=== PATIENT | male | born 1995 | race Caucasian/White ===

== ENCOUNTER → 2023-08-11 13:35 | Outpatient (CLI) | payer OTHER, SELFPAY ==
--- NOTE | ~2023-08-11 | XR_ITS ---
XR knee RT 3V 08/11/2023 13:54 INDICATION: Right knee pain PROCEDURE: 3 views right knee COMPARISON: No prior studies for comparison. FINDINGS: Fracture, dislocation or subluxation is not identified. No significant joint effusion. The soft tissues appear within normal limits. No foreign bodies are identified. IMPRESSION: 1: NO ACUTE BONE OR JOINT ABNORMALITY IDENTIFIED. Reviewed, dictated and finalized at location L. [employer] T[employer] CLEANING
== END ==
PROVIDERS: PCP Family Medicine Adolescent Medicine; Visit Provider Family Medicine Adolescent Medicine
DX: M25.561 Pain in right knee (principal)
CPT/HCPCS: 73562

== ENCOUNTER → 2023-09-03 08:51 | Outpatient (CLI) | payer OTHER, SELFPAY ==
--- NOTE | ~2023-09-03 | MR_ITS ---
MRI of the right knee Clinical history: Pain Technique: Coronal proton density and proton density-weighted images, sagittal proton-density and T2 fat-sat images, and axial proton-density fat-saturated images were acquired. Findings: Anterior and posterior cruciate ligaments are intact. Medial collateral ligament and the la teral collateral ligament complex are intact. Popliteus tendon is intact. Probable subtle oblique undersurface tear of the posterior horn of the medial meniscus. No lateral me niscal tear seen. Articular cartilage is well preserved in all 3 joint compartment. Bone marrow signals are unremarkabl e. Extensor mechanism is intact. No significant joint effusion or Duran's cyst. Impression: Probable subtle oblique undersurface tear of the posterior horn of the medial meniscus. Reviewed, dictated and finalized at location . GRATION SOFTWARE ENGINEER Impression: Probable subtle oblique undersurface tear of the posterior horn of the medial m eniscus.
== END ==
PROVIDERS: PCP Family Medicine Adolescent Medicine; Visit Provider Family Medicine Adolescent Medicine
DX: M25.561 Pain in right knee (principal)
CPT/HCPCS: 73721

== ENCOUNTER 2024-05-04 08:37 | Outpatient (CLI) | payer OTHER, SELFPAY ==
--- NOTE | ~2024-05-04 | MR_ITS ---
EXAMINATION: MR knee RT wo con DATE: 05/04/2024 09:13 INDICATION: Right patellar tendinitis. Right anterior knee pain. TECHNIQUE: Magnetic resonance imaging (MRI) of the right knee was performed without intravenous contr ast. Sequences included axial PD-weighted FS FSE, coronal PD-weighted FSE and PD-weighted FS FSE, sag ittal PD-weighted FSE, and sagittal T2-weighted FS FSE. COMPARISON: Right knee radiographs 03/14/24, MRI 09/03/2023. FINDINGS: Medial compartment: There is an undersurface horizontal tear of posterior horn of medial meniscus. Medial compartment car tilage is normal. Lateral compartment: Lateral meniscus is normal. Lateral compartment cartilage is normal. Patellofemoral compartment: Patellar cartilage is normal. Trochlear cartilage is normal. Ligaments and tendons: The anterior and posterior cruciate ligaments are normal. There are collateral ligament and lateral c ollateral ligament complex are normal. There is mild patellar tendinopathy. Fluid: There is a small knee joint effusion. There is mild superficial infrapatellar bursitis. IMPRESSION: 1. Mild patellar tendinopathy. 2. Mild superficial infrapatellar bursitis. 3. Tear of medial meniscus. 4. Small knee joint effusion. Reviewed, dictated and finalized at location A.
== END 2024-05-04 08:38 ==
LOC: MICIMG 08:38
PROVIDERS: PCP Family Medicine Adolescent Medicine; Visit Provider Orthopaedic Surgery Sports Medicine
DX: M76.51 Patellar tendinitis, right knee (principal); M70.51 Other bursitis of knee, right knee; M25.461 Effusion, right knee; S83.241A Other tear of medial meniscus, current injury, right knee, initial encounter; X58.XXXA Exposure to other specified factors, initial encounter
CPT/HCPCS: 73721

== ENCOUNTER 2025-03-25 19:48 | Emergency (ER) | payer OTHER, SELFPAY ==
[2025-03-25] VITALS (7 sets, daily range): BP systolic 108–124; BP diastolic 62–74; PULSE 56–84; RESP 14–20; TEMP 36.7; O2SAT 97–100
--- NOTE | ~2025-03-25 | XR_ITS ---
CHEST RADIOGRAPH CLINICAL HISTORY: lightheaded . COMPARISON: 12/07/2017 TECHNIQUE: Single portable view of the chest. FINDINGS The cardiomediastinal silhouette is unremarkable. Trace interstitial thickening is identified in comparison to prior examination. The lungs are primarily clear. IMPRESSION: Trace interstitial thickening, without focal infiltrate or effusion. Reviewed, dictated and finalized at location A.
--- OUTSIDE RECORDS SUMMARY | 2025-03-25 19:50 | XMS_ITS | Clinical Summary ---
Author Organization [facility] Address [address] [place] [address] Care Team Providers Care Concrete Stone Fabricating Supervisor Name Role Phone Rogelio Yoo MD Primary Care Provider + Source Comments [facility],non-owned Affiliates and Associated Physician Practices is amultiple site organization consisting of ambulatory clinics and hospital sitesin [place], [place], [place] and [place]. This disclosure is being madepursuant to the Care Everywhere program and may not contain all information available regarding this patient. Last updated 18.[facility] Allergies No known active allergies Medications * Be aware that medications may not be up to date on this document. Alwaysverify current medications with the patient. ALPRAZolam (XANAX) 0.25 MG tablet Take 0.25 mg by mouth 3 times daily as needed for Anxiety Active fluticasone propionate (FLONASE) 50 MCG/ACT nasal spray [place] 2 sprays into each nostril once daily Active ibuprofen (MOTRIN) 600 MG tablet Take 600 mg by mouth every 6 hours as needed for Pain Active aluminum-magnesi um-simethicone (MAALOX;MYLANTA) 200-200-20 MG/5ML suspension Take 15 mL by mouth every 6 hours as needed for Heartburn Active loratadine (CLARITIN) 10 MG tablet Take 10 mg by mouth once daily 1 Active pantoprazole EC (PROTONIX) 40 MG tabletIndication s:Esophageal dysmotility,Nasreen roesophageal reflux disease without esophagitis Take 1 (one) tablet by mouth once daily 90 tablet 3 2 Active Active Problems Problem Noted Date Diagnosed Date Anxiety 06/13/2019 Esophageal dysmotility 06/13/2019 Overview (08/15/2019): - Symptoms started ~2017. EGD normal. CT Chest and MRI chest normal - Esophageal manotomy December, Ineffective esophageal motility - Failed Has failed prior treatments with erythromycin, clarithromycin, PPI, and Reglan - May 2019 first office visit at [facility]. Significant regurgitation after meals and belching. Given bethanecol and simethicone. No improvement - 2018 24hr pH impedence Migraines 06/13/2019 Immunizations Immunization Administration Dates Next Due INFLUENZA VACCINE 07/29/2019 Family History Medical History Relation Name Comments Asthma Maternal Grandmother Relation Name Status Comments Maternal Grandmother Social History Tobacco Use Types Packs/Day Years Used Date Smoking Tobacco: Never Smokeless Tobacco: Never Alcohol Use Standard Drinks/Week Comments No 0 (1 standard drink = 0.6 oz pur e alcohol) Sex and Gender Information Value Date Recorded Sex Assigned at Male 06/04/2021 2:11 PM CDT Legal Sex Male 5:38 AM PRICING MANAGER Gender Identity Male 06/04/2021 2:11 PM CDT Sexual Orientation Straight 06/04/2021 2: 11 PM CDT Last Filed Vital Signs Vital Sign Reading Time Taken Comments Blood Pressure 112/60 09/30/2021 10:38 AM PRICING MANAGER Pulse 69 09/30/2021 10:38 AM PRICING MANAGER Temperature 36.8 C (98.2 F) 09/30/2021 10:38 AM PRICING MANAGER Respiratory Rate 18 09/30/2021 10:38 AM PRICING MANAGER Oxygen Saturation 100% 09/30/2021 10:38 AM PRICING MANAGER Inhaled Oxygen Concentration - - Weight 78.6 kg (173 lb 3.2 oz) 09/30/2021 10:38 AM PRICING MANAGER Height 177.8 cm (5' 10) 09/30/2021 10:38 AM PRICING MANAGER Body Mass Index 24.85 09/30/2021 10:38 AM PRICING MANAGER Plan of Treatment Health Maintenance Due Date Last Done Comments HIV SCREENING 2010 HEPATITIS C SCREENING 07/26/2013 DTAP/TDAP/TD VACCINES (1 - Tdap) 2014 HEPATITIS B VACCINE (1 of 3 - 19+ 3-dose series) 2014 COVID-19 VACCINE (3 - 2023-2 5 season) 2024 10/23/2020, 09/25/2020 DEPRESSION SCREENING 09/21/2024 INFLUENZA VACCINE (Season Ended) 2025 08/09/2021, 07/29/2019 ZOSTER VACCINE (1 of 2) 2045 HIB VACCINE Aged Out No longer eligi ble based on patient's age to complete this topic HPV VACCINE Aged Out No longer eligi ble based on patient's age to complete this topic MENINGOCOCCAL (Group B) VACCINE SHARED DECISION-MAKING Aged Out No longer eligible based on patient's age to complete this topic MENINGOCOCCAL GROUPS A/C/Y/W VACCINE Aged Out No longer eligible b ased on patient's age to complete this topic PNEUMOCOCCAL VACCINE Aged Out No long er eligible based on patient's age to complete this topic Goals Goal Patient Goal Type Associated Problems Recent Progress Patient-Stated? Author Medication Management General On track( 021 11:54 AM CDT) No Zlueyma Romero, RN Note: Expected end date: ongoing Interventions: Take all medications as prescribed Let your doctor know right away about any changes in your medications Make sure to request a refill of your medication at least one week prior to your last dose Insurance [facility] Member Subscriber Plan / Payer (Ef fective for All Dates) Name:Nathaniel Murdock Relation to Subscriber:Self Name:Nathaniel Murdock Payer ID:[id number] (NAIC) Group ID:Not on file Type:Medicaid Managed Care Address: [place] [address] AETNA MEDICAID - OUT OF STATE Care Teams Concrete Stone Fabricating Supervisor Relationship Specialty Start Date End Date Rogelio Yoo MD [address] [facility] [address] [place] [address] PCP - General Family Medicine 12/09/18
--- OUTSIDE RECORDS SUMMARY | 2025-03-25 19:50 | XMS_ITS | Referral Summary ---
Author Organization [facility] Address [address] [place] [address] Care Team Providers Care Physical Education Specialist Name Role Phone Rogelio Yoo MD Primary Care Prov ider Encounters Date Type Department Care Team Description 01/30/2025 2:50 PM CDT Office Visit [facility] Orthopaedic Surgery [address] [place] [address] [address]th [place] [address] [place] [address] Kyle Santos IV, MD Complex tear of medial meniscus of right knee as current injury, subsequent encounter (Primary Dx); S/P arthroscopic partial medial meniscectomy of right knee 01/02/2025 1:10 PM CDT Office Visit [facility] Orthopaedic Surgery [address] [place] [address] 12th [place] [address] [place] [address] Kyle Santos IV, MD Complex tear of medial meniscus of right knee as current injury, subsequent encounter (Primary Dx); S/P arthroscopic partial medial meniscectomy of right knee from Last 3 Months Allergies No known active allergies Medications naproxen (NAPROSYN) 500 mg tabletIndication s:Pain Take 1 tablet (500 mg total) by mouth 2 (two) times a day as needed for pain 03/30/2024 Active omeprazole (PriLOSEC) 40 mg capsuleIndicatio ns:Esophageal Dysmotility Take 1 capsule (40 mg total) by mouth every morning 03/28/2024 Active HYDROcodone-acet aminophen (NORCO) 5-325 mg per tabletIndication s:Pain 1 tablet every 6 hours as needed for pain. 12 tablet 09/28/2024 Active meloxicam (MOBIC) 15 mg tablet Take 1 tablet (15 mg total) by mouth daily 30 tablet 01/02/2025 Active Active Problems Problem Noted Date Diagnosed Date S/P arthroscopic partial medial meniscectomy of right knee 10/13/2024 Complex tear of medial menis cus of right knee as current injury 08/08/2024 Infrapatellar bursitis of right knee 05/30/2024 Patellar tendinitis, right knee 04/25/2024 Chronic pain of right knee 04/25/2024 Esophageal dysmotility 06/13/2019 Overview (10/13/2024): - Symptoms started ~2017. EGD normal. CT Chest and MRI chest normal - Esophageal manotomy December, Ineffective esophageal motility - Failed Has failed prior treatments with erythromycin, clarithromycin, PPI, and Reglan - May 2019 first office visit at [facility]. Significant regurgitation after meals and belching. Given bethanecol and simethicone. No improvement - 2018 24hr pH impedence Social History Tobacco Use Types Packs/Day Years Used Date Smoking Tobacco: Never Passive Smoke Exposure: Never Smokeless Tobacco: Never Tobacco Cessation:Counseling Given: No AUDIT-C Answer Date Recorded Q1: How often do you have a drink containing alc ohol? Monthly or less 09/28/2024 Q2: How many drinks containi ng alcohol do you have on a typical day when you are drinking? 1 or 2 09/28/2024 Q3: How often do you have si x or more drinks on one occasion? Never 09/28/2024 Personal Safety Answer Date Recorded Have you ever been in or are you currently in a harmful physical or emotional relationship or is someone making you feel afraid or unsafe? Denies 09/28/2024 Sex and Gender Information Value Date Recorded Sex Assigned at Not on file Legal Sex Male 3:24 PM CDT Gender Identity Not on file Sexual Orientation Not on file Last Filed Vital Signs Vital Sign Reading Time Taken Comments Blood Pressure 126/81 09/28/2024 1:10 PM LIVESTOCK HAULIER Pulse 68 09/28/2024 1:15 PM LIVESTOCK HAULIER Temperature 36.7 C (98.1 F) 09/28/2024 12:28 PM LIVESTOCK HAULIER Respiratory Rate 18 09/28/2024 1:15 PM LIVESTOCK HAULIER Oxygen Saturation 100% 09/28/2024 1:15 PM LIVESTOCK HAULIER Inhaled Oxygen Concentration - - Weight 78 kg (172 lb) 09/28/2024 11:36 AM LIVESTOCK HAULIER Height 177.8 cm (5' 10) 09/28/2024 11:36 AM LIVESTOCK HAULIER Body Mass Index 24.68 09/28/2024 11:36 AM LIVESTOCK HAULIER Plan of Treatment Not on file Insurance [facility] Care Teams Physical Education Specialist Relationship Specialty Start Date End Date Rogelio Yoo MD [address] [place] [address] PCP - General Family Medicine 04/25/24
--- OUTSIDE RECORDS SUMMARY | 2025-03-25 19:50 | XMS_ITS | Clinical Summary ---
Author Organization [facility] Address [address] [place] [phone] Care Team Providers Care Food Counselor Name Role Phone Rogelio Yoo MD Primary Care Prov ider Allergies No known active allergies Medications naproxen [...] - May 2019 first office visit at [facility] GI. Significant regurgitation after meals and belching. Given bethanecol and simethicone. No improvement - 2018 24hr pH impedence Encounters Date Type Department Care Team Description 01/30/2025 2:50 PM CDT Office Visit [facility] Orthopaedic Surgery [address] [place] [address] [address] [place] [address] [place] [address] Kyle Santos IV, MD Complex tear of medial meniscus of right knee as current injury, subsequent encounter (Primary Dx); S/P arthroscopic partial medial meniscectomy of right knee 01/02/2025 1:10 PM CDT Office Visit [facility] Orthopaedic Surgery [address] [place] [address] [address]th [place] [address] [place] [address] Kyle Santos IV, MD Complex tear of medial meniscus of right knee as current injury, subsequent encounter (Primary Dx); S/P arthroscopic partial medial meniscectomy of right knee from Last 3 Months Surgical History Surgery Date Site/Laterality Comments ESOPHAGOSCOPY W/ DILATION 09/21/2017 - 09/20/2018 GANGLION CYST EXCISION Right High school age or early college Medical History Medical History Date Comments GERD (gastroesophageal reflux disease) Social History Tobacco Use Types Packs/Day Years [...] on file Sexual Orientation Not on file Obstetrics History Last Filed Vital Signs Vital Sign Reading Time Taken Comments Blood Pressure 126/81 09/28/2024 1:10 PM POCKET OPERATOR Pulse 68 09/28/2024 1:15 PM POCKET OPERATOR Temperature 36.7 C (98.1 F) 09/28/2024 12:28 PM POCKET OPERATOR Respiratory Rate 18 09/28/2024 1:15 PM POCKET OPERATOR Oxygen Saturation 100% 09/28/2024 1:15 PM POCKET OPERATOR Inhaled Oxygen Concentration - - Weight 78 kg (172 lb) 09/28/2024 11:36 AM POCKET OPERATOR Height 177.8 cm (5' 10) 09/28/2024 11:36 AM POCKET OPERATOR Body Mass Index 24.68 09/28/2024 11:36 AM POCKET OPERATOR Plan of Treatment Health Maintenance Due Date Last Done Comments Depression Screening 1995 Hepatitis C Screening 1995 Varicella Vaccines (2 of 2 - 2-dose childhood series) 1999 01/26/1997 DTaP/Tdap/Td Vaccine (5 - Tdap) 2006 12/23/1996, 03/14/1996, 01/07/1996, Additional history exists Regular Well Visit/Exam 18-64 2013 Covid-19 Vaccine ( season) 2024 07/05/2023, 08/09/2021, 10/23/2020, Additional history exists Hepatitis B Screening Completed 03/14/1996 , 1995, 1995, Additional history exists Influenza Vaccine Completed 07/03/2024, , 06/25/2022, Additional history exists HPV Vaccines Aged Out No longer eligi ble based on patient's age to complete this topic Pneumococcal vaccine <65 Aged Out No longer eligible based on patient's age to complete this topic Insurance [employer] [facility] Care Teams Food Counselor Relationship Specialty Start Date End Date Rogelio Yoo MD [address] [place] [address] PCP - General Family Medicine 04/25/24
--- OUTSIDE RECORDS SUMMARY | 2025-03-25 19:50 | XMS_ITS | Clinical Summary ---
Author Organization [facility] Address [address] [place] [address] Care Team Providers Care Yard Clerk Name Role Phone Rogelio Yoo MD Primary Care Provider [phone] Allergies No known active allergies Medications No known medications Immunizations Immunization Administration Dates Next Due MODERNA COVID-19 (12+) MRNA, LNP-S, PF, 100 MCG/ 0.5 ML DOSE 10/23/2020,09/25/2020 Social History Tobacco Use Types Packs/Day Years Used Date Smoking Tobacco: Never Smokeless Tobacco: Never Alcohol Use Standard Drinks/Week Comments No 0 (1 standard drink = 0.6 oz pur e alcohol) AUDIT-C Answer Date Recorded Frequency of Alcohol Consumption Never 08/11/2018 Average Number of Drinks Not on file 018 Frequency of Binge Drinking Not on file 07/23 Sex and Gender Information Value Date Recorded Sex Assigned at Not on file Legal Sex Male 10:24 AM STRATEGY PLANNING CONSULTANT Gender Identity Not on file Sexual Orientation Not on file Last Filed Vital Signs Vital Sign Reading Time Taken Comments Blood Pressure 116/63 08/13/2018 9:10 AM STRATEGY PLANNING CONSULTANT Pulse 66 08/13/2018 9:10 AM STRATEGY PLANNING CONSULTANT Temperature 36.7 C (98.1 F) 08/13/2018 8:43 AM STRATEGY PLANNING CONSULTANT Respiratory Rate 19 08/13/2018 9:10 AM STRATEGY PLANNING CONSULTANT Oxygen Saturation 98% 08/13/2018 9:10 AM STRATEGY PLANNING CONSULTANT Inhaled Oxygen Concentration - - Weight 72.1 kg (159 lb) 08/10/2018 4:45 PM STRATEGY PLANNING CONSULTANT Height 177.8 cm (5' 10) 08/10/2018 4:45 PM STRATEGY PLANNING CONSULTANT Body Mass Index 22.81 08/10/2018 4:45 PM STRATEGY PLANNING CONSULTANT Plan of Treatment Health Maintenance Due Date Last Done Comments Annual Physical 1998 Hepatitis C 2013 DTaP, Tdap and Td Vaccines ( 1 - Tdap) 2014 Hepatitis B Vaccines (1 of 3 - 19+ 3-dose series) 2014 COVID-19 Vaccine (3 - 2023-2 5 season) 2024 10/23/2020, 09/25/2020 HPV Vaccines Aged Out No longer eligi ble based on patient's age to complete this topic Meningococcal B Vaccine Aged Out No l onger eligible based on patient's age to complete this topic Meningococcal Vaccine Aged Out No brian bucky eligible based on patient's age to complete this topic Pneumococcal Vaccine: Pediatrics (0 to 5 Years) and At-Risk Patients (6 to 49 Years) Aged Out No longer eligible b ased on patient's age to complete this topic RSV Immunizations Under 20 Months Aged Out No longer eligible b ased on patient's age to complete this topic Insurance Care Teams Yard Clerk Relationship Specialty Start Date End Date Rogelio Yoo MD [address] [address] PCP - General FAMILY PRACTICE 08/13/18
--- NOTE | 2025-03-25 19:55 | ECG_ITS ---
Test Date: 2025-03-25 19:59:30 Measurements Intervals [place] Rate: 83 P: 79 TN: 159 QRS: 64 QRSD: 98 T: 49 QT: 337 QTc: 398 Interpretive Statements SINUS RHYTHM EARLY REPOLARIZATION [ST ELEVATION WITH NORMALLY INFLECTED T WAVE] No previous ECG available for comparison Electronically Signed On 03-26-2025 13:41:05 CDT by Felipe Driscoll M.D.
[2025-03-25 21:06] LABS: Hematocrit 44.8 % (42.0-52.0); Hemoglobin 14.6 g/dL (14.0-18.0); Immature Granulocyte Percent A 0.2 % (0-0.5); Lymphocytes Absolute Auto 1.46 K/mm3 (0.9-3.2); Mean Corpuscular HGB Conc 32.6 g/dl (32-36); Mean Corpuscular Hemoglobin 30.6 pg (26-34); Mean Corpuscular Volume 93.9 fl (80-100); Nucleated Red Blood Cells Absolute Auto 0.000 K/mm3 (0.0-0.012); Nucleated Red Blood Cells Perc 0.0 % (0.0-0.2); Platelet Count Result 243 k/mm3 (150-375); Red Blood Count 4.77 M/mm3 (4.6-6.20); White Blood Count 5.9 K/mm3 (4.5-10.0)
[2025-03-25 21:08] LABS: Add Urine Microscopic? NO; Appearance Urine Clear (Clear); Glucose Urine UA Negative (Negative); Leukocyte Esterase Ur Negative LEU/UL (Negative); Nitrate Urine Negative (Negative); Specific Grav Ur 1.026 (1.001-1.035)
[2025-03-25 21:19] LABS: Alanine Aminotransferase 19 U/L (6-50); Albumin Level 4.7 g/dL (3.5-5.1); Alkaline Phosphatase 52 U/L (38-126); Anion Gap 7 mmol/L (4-12); Aspartate Amino Transferase 30 U/L (17-59); Bilirubin,Total 0.5 mg/dL (0.2-1.3); Blood Urea Nitrogen 11 mg/dL (9-20); Calcium 9.5 mg/dL (8.4-10.2); Carbon Dioxide 28 mmol/L (22-30); Chloride 104 mmol/L (98-107); Estimated CRCL calculation 124 ml/min; Estimated Glomerular Filt Rate > 60; Glucose 92 mg/dL (65-110); Potassium 4.5 mmol/L (3.4-5.0); Sodium 139 mmol/L (137-145); Total Protein 8.3 g/dL (6.3-8.2)
--- OUTSIDE RECORDS SUMMARY | 2025-03-25 22:18 | XMS_ITS | Referral Summary ---
Author Organization [facility] Address [address] [place] [phone] Care Team Providers Care Computer Clerk Name Role Phone Rogelio Yoo MD Primary Care Prov ider Encounters Date Type Department Care Team Description 01/30/2025 2:50 PM CDT Office Visit [facility] Orthopaedic Surgery [address] [place] [address] [address] [place] [address] [place] [address] Kyle Santos IV, MD Complex tear of medial meniscus of right knee as current injury, subsequent encounter (Primary Dx); S/P arthroscopic partial medial meniscectomy of right knee 01/02/2025 1:10 PM CDT Office Visit [facility] Orthopaedic Surgery [address] [place] [address] [address] [place] [address] [place] [address] Kyle Santos IV, MD Complex tear of [...] - May 2019 first office visit at [facility] GI. Significant regurgitation after meals and [...] Comments Blood Pressure 126/81 09/28/2024 1:10 PM PROGRAM SERVICES ASSISTANT Pulse 68 09/28/2024 1:15 PM PROGRAM SERVICES ASSISTANT Temperature 36.7 C (98.1 F) 09/28/2024 12:28 PM PROGRAM SERVICES ASSISTANT Respiratory Rate 18 09/28/2024 1:15 PM PROGRAM SERVICES ASSISTANT Oxygen Saturation 100% 09/28/2024 1:15 PM PROGRAM SERVICES ASSISTANT Inhaled Oxygen Concentration - - Weight 78 kg (172 lb) 09/28/2024 11:36 AM PROGRAM SERVICES ASSISTANT Height 177.8 cm (5' 10) 09/28/2024 11:36 AM PROGRAM SERVICES ASSISTANT Body Mass Index 24.68 09/28/2024 11:36 AM PROGRAM SERVICES ASSISTANT Plan of Treatment Not on file Insurance [facility] Care Teams Computer Clerk Relationship Specialty Start Date End Date Rogelio Yoo MD [address] [place] [address] PCP - General Family Medicine 04/25/24
--- OUTSIDE RECORDS SUMMARY | 2025-03-25 22:18 | XMS_ITS | Clinical Summary ---
Author Organization [facility] Address [address] [place] [phone] Care Team Providers Care Aquaculturist Name Role Phone Rogelio Yoo MD Primary [...] - May 2019 first office visit at [facility] GI. Significant regurgitation after meals and belching. Given bethanecol and simethicone. No improvement - 2018 24hr pH impedence Encounters Date Type Department Care Team Description 01/30/2025 2:50 PM CDT Office Visit [facility] Orthopaedic Surgery [address] [place] [address] [address] [place] [address] [place] [address] Kyle Santos IV, MD Complex tear of medial meniscus of right knee as current injury, subsequent encounter (Primary Dx); S/P arthroscopic partial medial meniscectomy of right knee 01/02/2025 1:10 PM CDT Office Visit [facility] Orthopaedic Surgery [address] [place] [address] [address] [place] [address] [place] [address] Kyle Santos IV, MD Complex tear of [...] Comments Blood Pressure 126/81 09/28/2024 1:10 PM SENIOR SOLUTIONS ARCHITECT Pulse 68 09/28/2024 1:15 PM SENIOR SOLUTIONS ARCHITECT Temperature 36.7 C (98.1 F) 09/28/2024 12:28 PM SENIOR SOLUTIONS ARCHITECT Respiratory Rate 18 09/28/2024 1:15 PM SENIOR SOLUTIONS ARCHITECT Oxygen Saturation 100% 09/28/2024 1:15 PM SENIOR SOLUTIONS ARCHITECT Inhaled Oxygen Concentration - - Weight 78 kg (172 lb) 09/28/2024 11:36 AM SENIOR SOLUTIONS ARCHITECT Height 177.8 cm (5' 10) 09/28/2024 11:36 AM SENIOR SOLUTIONS ARCHITECT Body Mass Index 24.68 09/28/2024 11:36 AM SENIOR SOLUTIONS ARCHITECT Plan of Treatment Health Maintenance Due Date [...] age to complete this topic Insurance [employer]ETNA [facility] H[facility] Care Teams Aquaculturist Relationship Specialty Start Date End Date Rogelio Yoo MD [address] [place] [address] PCP - General Family Medicine 04/25/24
--- OUTSIDE RECORDS SUMMARY | 2025-03-25 22:18 | XMS_ITS | Clinical Summary ---
Author Organization [facility] Address [address] [place] [address] Care Team Providers Care Sewing Machine Operator Plastic Zipper Name Role Phone Rogelio Yoo MD Primary Care Provider + Source Comments [facility],non-owned Affiliates and Associated Physician Practices is amultiple site organization consisting of ambulatory clinics and hospital sitesin [place], [place], [place] and [place]. This disclosure is being madepursuant to the Care Everywhere program and may not contain all information available regarding this patient. Last updated 18.[facility] Allergies No known active allergies Medications * Be aware that medications may not be up to date on this document. Alwaysverify current medications with the patient. ALPRAZolam (XANAX) 0.25 MG tablet Take 0.25 mg by mouth 3 times daily as needed for Anxiety Active fluticasone propionate (FLONASE) 50 MCG/ACT nasal spray [place] 2 sprays into each nostril once daily [...] - May 2019 first office visit at [facility]. Significant regurgitation after meals and [...] PM CDT Legal Sex Male 5:38 AM HEAVY EQUIPMENT OPERATOR/PAVER Gender Identity Male 06/04/2021 2:11 PM CDT Sexual Orientation Straight 06/04/2021 2: 11 PM CDT Last Filed Vital Signs Vital Sign Reading Time Taken Comments Blood Pressure 112/60 09/30/2021 10:38 AM HEAVY EQUIPMENT OPERATOR/PAVER Pulse 69 09/30/2021 10:38 AM HEAVY EQUIPMENT OPERATOR/PAVER Temperature 36.8 C (98.2 F) 09/30/2021 10:38 AM HEAVY EQUIPMENT OPERATOR/PAVER Respiratory Rate 18 09/30/2021 10:38 AM HEAVY EQUIPMENT OPERATOR/PAVER Oxygen Saturation 100% 09/30/2021 10:38 AM HEAVY EQUIPMENT OPERATOR/PAVER Inhaled Oxygen Concentration - - Weight 78.6 kg (173 lb 3.2 oz) 09/30/2021 10:38 AM HEAVY EQUIPMENT OPERATOR/PAVER Height 177.8 cm (5' 10) 09/30/2021 10:38 AM HEAVY EQUIPMENT OPERATOR/PAVER Body Mass Index 24.85 09/30/2021 10:38 AM HEAVY EQUIPMENT OPERATOR/PAVER Plan of Treatment Health Maintenance Due Date [...] On track( 021 11:54 AM CDT) No Zuleyma Romero, RN Note: Expected end date: ongoing Interventions: Take all medications as prescribed Let your doctor know right away about any changes in your medications Make sure to request a refill of your medication at least one week prior to your last dose Insurance [facility] Member Subscriber Plan / Payer (Ef fective for All Dates) Name:Nathaniel Murdock Relation to Subscriber:Self Name:Nathaniel Murdock Payer ID:[id number] (NAIC) Group ID:Not on file Type:Medicaid Managed Care Address: [place] [id number] [employer] MEDICAID - OUT OF STATE Care Teams Sewing Machine Operator Plastic Zipper Relationship Specialty Start Date End Date Rogelio Yoo MD [address] [place] [address] PCP - General Family Medicine 12/09/18
--- OUTSIDE RECORDS SUMMARY | 2025-03-25 22:18 | XMS_ITS | Clinical Summary ---
Author Organization [facility] Address [address] [place] [address] Care Team Providers Care Trim Machine Adjuster Name Role Phone Rogelio Yoo MD Primary Care Provider [phone] Allergies No known active allergies Medications No [...] on file Legal Sex Male 10:24 AM SUPERVISOR LENDING ACTIVITIES Gender Identity Not on file Sexual Orientation Not on file Last Filed Vital Signs Vital Sign Reading Time Taken Comments Blood Pressure 116/63 08/13/2018 9:10 AM SUPERVISOR LENDING ACTIVITIES Pulse 66 08/13/2018 9:10 AM SUPERVISOR LENDING ACTIVITIES Temperature 36.7 C (98.1 F) 08/13/2018 8:43 AM SUPERVISOR LENDING ACTIVITIES Respiratory Rate 19 08/13/2018 9:10 AM SUPERVISOR LENDING ACTIVITIES Oxygen Saturation 98% 08/13/2018 9:10 AM SUPERVISOR LENDING ACTIVITIES Inhaled Oxygen Concentration - - Weight 72.1 kg (159 lb) 08/10/2018 4:45 PM SUPERVISOR LENDING ACTIVITIES Height 177.8 cm (5' 10) 08/10/2018 4:45 PM SUPERVISOR LENDING ACTIVITIES Body Mass Index 22.81 08/10/2018 4:45 PM SUPERVISOR LENDING ACTIVITIES Plan of Treatment Health Maintenance Due Date [...] to complete this topic Insurance Care Teams Trim Machine Adjuster Relationship Specialty Start Date End Date Rogelio Yoo MD [address] [address] PCP - General FAMILY PRACTICE 08/13/18
--- NOTE | 2025-03-25 23:08 | ED.DIZZY ---
HPI - Dizziness General Chief Complaint: Dizziness <SHILO Delgado Last Filed: 03/26/25 01:17> Stated Complaint: lightheadedness/Dizziness, GI bleed <SHILO Delgado Last Filed: 03/26/25 01:17> Time Seen by Provider: 03/25/25 22:10 <SHILO Delgado Last Filed: 03/26/25 01:17> History of Present Illness HPI Narrative: 29-year-old male presents emergency department for lightheadedness for the past 5 days. Patient reports associated mild exertional dyspnea. Patient states his symptoms worsened yesterday while he was in the heat all day for the 24 of March. He denies syncope, chest pain, cough or congestion, hemoptysis, lower extremity edema, history of VTE, abdominal pain. He states he does struggle intermittently with constipation and diarrhea which has been occurring throughout the week. His last bowel movement was today and reportedly consistent with constipation. He notes that when he was 15 years old he had a GI bleed and was hospitalized for 3 days. He states in addition to bright red blood per rectum he also had lightheadedness. Given his lightheadedness this week this concerned him so he came to the emergency department for further evaluation. He has not had any melena or hematochezia. He states he is uncertain what caused the GI bleed when he was younger. He also has a history of supravalvular aortic stenosis which was diagnosed several years ago an echocardiogram. Patient follows with Dr. Zhao for this. <Sameera Razo PA-C - Last Filed: 03/26/25 01:17> Related Data Home Medications: Home Medications ?Medication ?Instructions ?Recorded ?Confirmed ?Last Taken ?Type docusate sodium 100 mg capsule 100 mg PO DAILY 07/19/20 03/14/24 Unknown History multivitamin,pr-uetg-[id number] 1 tablet PO DAILY 07/19/20 03/14/24 Unknown History (Complete Multivitamin tablet) <SHILO Delgado Last Filed: 03/26/25 01:17> Allergies/Adverse Reactions: Allergies Allergy/AdvReac Type Severity Reaction Status Date / Time No Known Allergies Allergy Verified 03/25/25 19:50 <Sameera Razo PA-C - Last Filed: 03/26/25 01:17> Review of Systems Review of Systems: All systems reviewed & are unremarkable except as noted in HPI and below <Sameera Razo PA-C - Last Filed: 03/26/25 01:17> PMFSH Past Medical History Medical History: Medical History Hoffa's fat pad disease Patellar tendonitis Right knee pain Migraine Head ache <Sameera Razo PA-C - Last Filed: 03/26/25 01:17> Surgical History Surgical History: Surgical History History of surgery on right wrist <Sameera Razo PA-C - Last Filed: 03/26/25 01:17> Family History Family History: Family History Grandparent Asthma <Sameera Razo PA-C - Last Filed: 03/26/25 01:17> Social History Social History: Social History Smoking status: Never smoker Alcohol intake: never Lack of Transportation: No Lack of Food: Never True Current Housing: I Have Housing Concerned About Future Housing: No Difficulty Paying Gas/Electric Bills: No Difficulty Paying for Meds: No Currently Unemployed: No Education: Master's Degree or Higher Difficulty w/ Childcare or Family Care: No Occupation/Education: occupation Additional occupation/education comments: Pharmacist- [employer] Gender identity (if verbalized by the patient): Male <Sameera Razo PA-C - Last Filed: 03/26/25 01:17> Exam Narrative: GENERAL: Well-appearing, well-nourished, and in no acute distress. HEAD: Normocephalic, atraumatic. EYES: PERRLA and EOMI. ENT: Nares clear, no rhinorrhea or epistaxis. Mucous membranes moist. NECK: Supple. CHEST: Clear to auscultation. No respiratory distress. HEART: Regular rate and rhythm. No murmur heard. Normal peripheral pulses. ABDOMEN: Soft, nontender, nondistended, normal active bowel sounds. EXTREMITIES: Normal range of motion. No edema. Negative Homans bilaterally SKIN: Warm, dry, no rash. NEURO: No focal deficits. Alert and oriented x3 <Sameera Razo PA-C - Last Filed: 03/26/25 01:17> Course EDGING MACHINE SETTER/PA Physician Supervision This visit was performed by both a physician and an APC. I performed all aspects of the MDM as documented. <Liam Rose MD - Last Filed: 03/26/25 06:09> Vital Signs Vital signs: Vital Signs Temperature 36.7 C 03/25/25 19:52 Pulse Rate 84 03/25/25 19:52 Respiratory Rate 20 03/25/25 19:52 Blood Pressure 115/73 03/25/25 19:52 Pulse Oximetry 97 03/25/25 19:52 Oxygen Delivery Room Air 03/25/25 19:52 Temperature 36.7 C 03/25/25 19:52 Pulse Rate 58 L 03/26/25 01:37 Respiratory Rate 18 03/26/25 01:37 Blood Pressure 117/72 03/26/25 01:37 Pulse Oximetry 99 03/26/25 01:37 Oxygen Delivery Room Air 03/25/25 19:52 <Sameera Razo PA-C - Last Filed: 03/26/25 01:17> Vital Signs Temperature 36.7 C 03/25/25 19:52 Pulse Rate 84 03/25/25 19:52 Respiratory Rate 20 03/25/25 19:52 Blood Pressure 115/73 03/25/25 19:52 Pulse Oximetry 97 03/25/25 19:52 Oxygen Delivery Room Air 03/25/25 19:52 Temperature 36.7 C 03/25/25 19:52 Pulse Rate 58 L 03/26/25 01:37 Respiratory Rate 18 03/26/25 01:37 Blood Pressure 117/72 03/26/25 01:37 Pulse Oximetry 99 03/26/25 01:37 Oxygen Delivery Room Air 03/25/25 19:52 <Liam Rose MD - Last Filed: 03/26/25 06:09> MDM - Dizziness MDM Narrative Medical decision making narrative: 29-year-old male presents to the emergency department for lightheadedness for the past 4 days. See HPI for further history. Triage vitals are stable. Patient is afebrile and nontoxic appearing resting comfortably in exam bed. Exam is notable for the above. Lab work shows no leukocytosis or anemia. Chemistries are unremarkable no electrolyte derangements. UA with trace ketonuria, no UTI. Magnesium is within normal limits. EKG shows normal sinus rhythm rate of 83 ppm, normal UT interval, normal QRS duration, normal QTC, early repolarization otherwise no ischemic changes. Troponin is undetectable. Chest x-ray shows no acute cardiopulmonary findings. Orthostatic vital signs are normal. Patient is given a L of fluids. He was updated on his workup. He is still having lightheadedness but is requesting to be discharged home. He is ambulatory with a steady gait. I did discuss his symptoms may be due to his supravalvular aortic stenosis and recommended that he follow-up with his bounty hunter and PCP for an echocardiogram. He voices he was mostly concerned that he may be developing a GI bleed. I discussed his hemoglobin is within normal limits and he denies melena or hematochezia. I did offer to perform a rectal exam guaiac, however patient declined. I advised him to stay hydrated and follow up closely outpatient. Discussed strict ED return precautions. He is agreeable with the plan verbalized understanding. Discharged in stable condition. <Sameera Razo PA-C - Last Filed: 03/26/25 01:17> 29-year-old male presents to the emergency department for lightheadedness for the past 4 days. See HPI for further history. Triage vitals are stable. Patient is afebrile and nontoxic appearing resting comfortably in exam bed. Exam is notable for the above. Lab work shows no leukocytosis or anemia. Chemistries are unremarkable no electrolyte derangements. UA with trace ketonuria, no UTI. Magnesium is within normal limits. EKG shows normal sinus rhythm rate of 83 ppm, normal UT interval, normal QRS duration, normal QTC, early repolarization otherwise no ischemic changes. Troponin is undetectable. Chest x-ray shows no acute cardiopulmonary findings. Orthostatic vital signs are normal. Patient is given a L of fluids. He was updated on his workup. He is still having lightheadedness but is requesting to be discharged home. He is ambulatory with a steady gait. I did discuss his symptoms may be due to his supravalvular aortic stenosis and recommended that he follow-up with his bounty hunter and PCP for an echocardiogram. He voices he was mostly concerned that he may be developing a GI bleed. I discussed his hemoglobin is within normal limits and he denies melena or hematochezia. I did offer to perform a rectal exam guaiac, however patient declined. I advised him to stay hydrated and follow up closely outpatient. Discussed strict ED return precautions. He is agreeable with the plan verbalized understanding. Discharged in stable condition. <Liam Rose MD - Last Filed: 03/26/25 06:09> Lab Data Result diagrams: 03/25/25 20:50 03/25/25 20:51 <Sameera Razo PA-C - Last Filed: 03/26/25 01:17> Labs: Lab Results 03/25/25 03/25/25 Range/Units 20:50 20:51 WBC 5.9 (4.5-10.0) K/mm3 RBC 4.77 (4.6-6.20) M/mm3 Hgb 14.6 (14.0-18.0) g/dL Hct 44.8 (42.0-52.0) % MCV 93.9 (80-100) fl MCH 30.6 (26-34) pg MCHC 32.6 (32-36) g/dl RDW 13.2 (11.5-14.5) % Plt Count 243 (150-375) k/mm3 MPV 8.9 (7.4-10.4) fl Immature Gran % (Auto) 0.2 (0-0.5) % Neut % (Auto) 59.3 (45.5-73.1) % Lymph % (Auto) 24.8 (18.3-44.2) % [place] % (Auto) 9.7 H (2.6-8.5) % Eos % (Auto) 5.3 H (0-4.4) % Baso % (Auto) 0.7 (0.2-1.2) % Lymph # (Auto) 1.46 (0.9-3.2) K/mm3 [place] # (Auto) 0.6 (0.1-0.6) K/mm3 Eos # (Auto) 0.3 (0-0.3) K/mm3 Baso # (Auto) 0.0 (0.0-0.1) K/mm3 Abs Immat Gran (auto) 0.01 (0.00-0.031) K/mm3 Absolute Neuts (auto) 3.5 (1.3-6.7) K/mm3 Absolute Nucleated RBC 0.000 (0.0-0.012) K/mm3 Nucleated RBC % 0.0 (0.0-0.2) % PT 13.9 (11.1-14.7) Seconds INR 1.1 APTT 27.8 (22.3-36.8) Seconds Sodium 139 (137-145) mmol/L Potassium 4.5 (3.4-5.0) mmol/L Chloride 104 (98-107) mmol/L Carbon Dioxide 28 (22-30) mmol/L Anion Gap 7 (4-12) mmol/L BUN 11 (9-20) mg/dL Creatinine 0.79 (0.7-1.3) mg/dL Estim Creat Clear Calc 124 ml/min Estimated GFR > 60 (59 - ) Glucose 92 (65-110) mg/dL Calcium 9.5 (8.4-10.2) mg/dL Magnesium 2.0 (1.6-2.3) mg/dL Total Bilirubin 0.5 (0.2-1.3) mg/dL AST 30 (17-59) U/L ALT 19 (6-50) U/L Alkaline Phosphatase 52 (38-126) U/L Troponin I < 0.012 (0.000-0.034) ng/mL Total Protein 8.3 H (6.3-8.2) g/dL Albumin 4.7 (3.5-5.1) g/dL Urine Color Yellow (Yellow) Urine Appearance Clear (Clear) Urine pH 6.0 (5.0-9.0) Ur Specific [place] 1.026 (1.001-1.035) Urine Protein Negative (Negative) mg/dL Urine Glucose (UA) Negative (Negative) mg/dL Urine Ketones Trace H (Negative) mg/dL Ur Blood (Man) Negative (Negative) Urine Nitrate Negative (Negative) Urine Bilirubin Negative (Negative) Urine Urobilinogen 1.0 (<2.0) mg/dL Leukocyte Esterase Rfl Negative (Negative) ROMEO/UL <Sameera Razo PA-C - Last Filed: 03/26/25 01:17> Lab Results 03/25/25 03/25/25 Range/Units 20:50 20:51 WBC 5.9 (4.5-10.0) K/mm3 RBC 4.77 (4.6-6.20) M/mm3 Hgb 14.6 (14.0-18.0) g/dL Hct 44.8 (42.0-52.0) % MCV 93.9 (80-100) fl MCH 30.6 (26-34) pg MCHC 32.6 (32-36) g/dl RDW 13.2 (11.5-14.5) % Plt Count 243 (150-375) k/mm3 MPV 8.9 (7.4-10.4) fl Immature Gran % (Auto) 0.2 (0-0.5) % Neut % (Auto) 59.3 (45.5-73.1) % Lymph % (Auto) 24.8 (18.3-44.2) % [place] % (Auto) 9.7 H (2.6-8.5) % Eos % (Auto) 5.3 H (0-4.4) % Baso % (Auto) 0.7 (0.2-1.2) % Lymph # (Auto) 1.46 (0.9-3.2) K/mm3 [place] # (Auto) 0.6 (0.1-0.6) K/mm3 Eos # (Auto) 0.3 (0-0.3) K/mm3 Baso # (Auto) 0.0 (0.0-0.1) K/mm3 Abs Immat Gran (auto) 0.01 (0.00-0.031) K/mm3 Absolute Neuts (auto) 3.5 (1.3-6.7) K/mm3 Absolute Nucleated RBC 0.000 (0.0-0.012) K/mm3 Nucleated RBC % 0.0 (0.0-0.2) % PT 13.9 (11.1-14.7) Seconds INR 1.1 APTT 27.8 (22.3-36.8) Seconds Sodium 139 (137-145) mmol/L Potassium 4.5 (3.4-5.0) mmol/L Chloride 104 (98-107) mmol/L Carbon Dioxide 28 (22-30) mmol/L Anion Gap 7 (4-12) mmol/L BUN 11 (9-20) mg/dL Creatinine 0.79 (0.7-1.3) mg/dL Estim Creat Clear Calc 124 ml/min Estimated GFR > 60 (59 - ) Glucose 92 (65-110) mg/dL Calcium 9.5 (8.4-10.2) mg/dL Magnesium 2.0 (1.6-2.3) mg/dL Total Bilirubin 0.5 (0.2-1.3) mg/dL AST 30 (17-59) U/L ALT 19 (6-50) U/L Alkaline Phosphatase 52 (38-126) U/L Troponin I < 0.012 (0.000-0.034) ng/mL Total Protein 8.3 H (6.3-8.2) g/dL Albumin 4.7 (3.5-5.1) g/dL Urine Color Yellow (Yellow) Urine Appearance Clear (Clear) Urine pH 6.0 (5.0-9.0) Ur Specific [place] 1.026 (1.001-1.035) Urine Protein Negative (Negative) mg/dL Urine Glucose (UA) Negative (Negative) mg/dL Urine Ketones Trace H (Negative) mg/dL Ur Blood (Man) Negative (Negative) Urine Nitrate Negative (Negative) Urine Bilirubin Negative (Negative) Urine Urobilinogen 1.0 (<2.0) mg/dL Leukocyte Esterase Rfl Negative (Negative) ROMEO/UL <Liam Rose MD - Last Filed: 03/26/25 06:09> Discharge Plan Discharge Clinical Impression: Lightheadedness <SHILO Delgado Last Filed: 03/26/25 01:17> Patient Disposition: Home <SHILO Delgado Last Filed: 03/26/25 01:17> Condition: Stable <SHILO Delgado Last Filed: 03/26/25 01:17> Instructions: Antibiotic Form, Lightheadedness (ED) <Sameera Razo PA-C - Last Filed: 03/26/25 01:17> Additional Instructions: You were evaluated in the emergency department for lightheadedness. Your workup here is reassuring. Your lightheadedness may be due to dehydration or possibly due to your underlying supravalvular aortic stenosis as discussed. Please make sure to follow-up closely with your bounty hunter and primary care provider she may need an outpatient echocardiogram for further evaluation. Make sure to drink plenty fluids. Return to the emergency department if you develop worsening lightheadedness, chest pain, shortness of breath, loss of consciousness or other concerning symptoms. <SHILO Delgado Last Filed: 03/26/25 01:17> Patient Language: Vietnamese <SHILO Delgado Last Filed: 03/26/25 01:17> Prescriptions: No Action docusate sodium 100 mg capsule 100 mg PO DAILY Complete Multivitamin Tablet 1 tablet PO DAILY loratadine 10 mg tablet See Rx Instructions .ROUTE .COMPLEX Qty: 30 5RF Dose Instruction: TAKE 1 TABLET BY MOUTH EVERY DAY Rx Instructions: TAKE 1 TABLET BY MOUTH EVERY DAY naproxen 500 mg tablet 500 mg PO BID Qty: 60 2RF omeprazole 40 mg capsule,delayed release(DR/EC) 40 mg PO DAILY Qty: 90 1RF <Sameera Razo PA-C - Last Filed: 03/26/25 01:17> Follow-up/Referrals: Tyler Zhao DO [Physician] - Rogelio Yoo MD [Primary Care Provider] - <SHILO Delgado Last Filed: 03/26/25 01:17>
[2025-03-25 23:25] LABS: Magnesium 2.0 mg/dL (1.6-2.3)
[2025-03-25 23:27] LABS: INR 1.1; Prothrombin Time 13.9 Seconds (11.1-14.7)
[2025-03-25] MEDS: SODIUM CHLORIDE 0.9% IV 1,000 ML 999 ML IV CONT (23:27)
[2025-03-25 23:28] LABS: Partial Thromboplastin Time 27.8 Seconds (22.3-36.8)
[2025-03-25 23:37] LABS: Troponin I < 0.012 ng/mL (0.000-0.034)
[2025-03-26 00:04] VITALS: BP 109/76; PULSE 75
[2025-03-26 00:06] VITALS: BP 115/81; PULSE 69
[2025-03-26 01:37] VITALS: BP 117/72; PULSE 58; RESP 18; O2SAT 99
== END 2025-03-26 01:39 | disposition home or self-care (01) ==
PROVIDERS: Student in an Organized Health Care Education/Training Program; Emergency Provider Physician Assistant; PCP Family Medicine Adolescent Medicine
DX: R42 Dizziness and giddiness (principal)
CPT/HCPCS: 36415; 71045; 80053; 81003; 83735; 84484; 85025; 85610; 85730; 93005; 96360; 99284; J7030

== ENCOUNTER 2025-04-06 07:30 | Outpatient (CLI) | payer OTHER, SELFPAY ==
--- NOTE | ~2025-04-06 | CT_ITS ---
Clinical Indication: Abnormal chest x-ray CT Scan of the Chest with Contrast: Technique: Contiguous sections were acquired throughout the chest after intravenous administration of 75 cc of Omnipaque 350. Dose reduction technique was used on this scan by utilizing automated exposu re control and iterative reconstruction technique. The dose-length product (DLP) was 150.87 mGy-cm. Findings: There is no evidence of any significant mediastinal, hilar or axillary lymphadenopathy. Mediastinal s oft tissues and vascular structures appear unremarkable. There is no evidence of pleural or pericardial effusion. The lungs are clear. No pulmonary nodules or infiltrates are noted. Images through the upper abdomen reveal no abnormalities. Impression: Unremarkable exam. Reviewed, dictated and finalized at location . Impression: Unremarkable exam.
--- OUTSIDE RECORDS SUMMARY | 2025-04-06 07:34 | XMS_ITS | Clinical Summary ---
Author Organization [facility] Address [address] [place] [id number] Care Team Providers Care Sole Sewer Hand Name Role Phone Rogelio Yoo MD Primary [...] - May 2019 first office visit at [facility]. Significant regurgitation after meals and belching. Given bethanecol and simethicone. No improvement - 2018 24hr pH impedence Encounters Date Type Department Care Team Description 01/30/2025 2:50 PM CDT Office Visit [facility] Orthopaedic Surgery [address] [place] [address] [place] [address] Kyle Santos IV, MD Complex tear of [...] Comments Blood Pressure 126/81 09/28/2024 1:10 PM CITY ROUTEMAN Pulse 68 09/28/2024 1:15 PM CITY ROUTEMAN Temperature 36.7 C (98.1 F) 09/28/2024 12:28 PM CITY ROUTEMAN Respiratory Rate 18 09/28/2024 1:15 PM CITY ROUTEMAN Oxygen Saturation 100% 09/28/2024 1:15 PM CITY ROUTEMAN Inhaled Oxygen Concentration - - Weight 78 kg (172 lb) 09/28/2024 11:36 AM CITY ROUTEMAN Height 177.8 cm (5' 10) 09/28/2024 11:36 AM CITY ROUTEMAN Body Mass Index 24.68 09/28/2024 11:36 AM CITY ROUTEMAN Plan of Treatment Health Maintenance Due Date Last Done Comments Depression Screening 1995 Hepatitis C Screening 1995 Varicella Vaccines (2 of 2 - 2-dose childhood series) 1999 01/26/1997 DTaP/Tdap/Td Vaccine (5 - Tdap) 2006 12/23/1996, 03/14/1996, 01/07/1996, Additional history exists Regular Well Visit/Exam 18-64 2013 Covid-19 Vaccine ( - season) 2024 07/05/2023, 08/09/2021, 10/23/2020, Additional history exists Influenza Vaccine (#1) 2025 , 07/05/2023, 06/25/2022, Additional history exists Hepatitis B Screening Completed 03/14/1996 , 1995, 1995, Additional history exists HPV Vaccines Aged Out No longer eligi ble based on patient's age to complete this topic Pneumococcal vaccine <65 Aged Out No longer eligible based on patient's age to complete this topic Insurance [facility] Care Teams Sole Sewer Hand Relationship Specialty Start Date End Date Rogelio Yoo MD [address] [place] [id number] PCP - General Family Medicine 04/25/24
--- OUTSIDE RECORDS SUMMARY | 2025-04-06 07:34 | XMS_ITS | Referral Summary ---
Author Organization [facility] Address [address] [place] [address] Care Team Providers Care Collision Center Manager Name Role Phone Rogelio Yoo MD Primary Care Prov ider Encounters Date Type Department Care Team Description 01/30/2025 2:50 PM CDT Office Visit [facility] Orthopaedic Surgery [address] [facility] [address] [place] [address] [place] [address] Kyle Santos IV, MD Complex tear of [...] Comments Blood Pressure 126/81 09/28/2024 1:10 PM PARK KEEPER Pulse 68 09/28/2024 1:15 PM PARK KEEPER Temperature 36.7 C (98.1 F) 09/28/2024 12:28 PM PARK KEEPER Respiratory Rate 18 09/28/2024 1:15 PM PARK KEEPER Oxygen Saturation 100% 09/28/2024 1:15 PM PARK KEEPER Inhaled Oxygen Concentration - - Weight 78 kg (172 lb) 09/28/2024 11:36 AM PARK KEEPER Height 177.8 cm (5' 10) 09/28/2024 11:36 AM PARK KEEPER Body Mass Index 24.68 09/28/2024 11:36 AM PARK KEEPER Plan of Treatment Not on file Insurance [facility] Care Teams Collision Center Manager Relationship Specialty Start Date End Date Rogelio Yoo MD [address] [place] [address] PCP - General Family Medicine 04/25/24
--- OUTSIDE RECORDS SUMMARY | 2025-04-06 07:34 | XMS_ITS | Clinical Summary ---
Author Organization [facility] Address [address] [place] [address] Care Team Providers Care Health And Wellness Manager Name Role Phone Rogelio Yoo MD Primary Care Provider + Source Comments [facility],non-owned Affiliates and Associated Physician Practices is amultiple site organization consisting of ambulatory clinics and hospital sitesin [place], [place], [place] and [place]. This disclosure is being madepursuant to the Care Everywhere program and may not contain all information available regarding this patient. Last updated 18.[facility] Allergies No known active allergies Medications * Be aware that medications may not be up to date on this document. Alwaysverify current medications with the patient. ALPRAZolam (XANAX) 0.25 MG tablet Take 0.25 mg by mouth 3 times daily as needed for Anxiety Active fluticasone propionate (FLONASE) 50 MCG/ACT nasal spray Corder 2 sprays into each nostril once daily [...] - May 2019 first office visit at [facility]. Significant regurgitation after meals and [...] PM CDT Legal Sex Male 5:38 AM CODING COMPLIANCE AUDITOR Gender Identity Male 06/04/2021 2:11 PM CDT Sexual Orientation Straight 06/04/2021 2: 11 PM CDT Last Filed Vital Signs Vital Sign Reading Time Taken Comments Blood Pressure 112/60 09/30/2021 10:38 AM CODING COMPLIANCE AUDITOR Pulse 69 09/30/2021 10:38 AM CODING COMPLIANCE AUDITOR Temperature 36.8 C (98.2 F) 09/30/2021 10:38 AM CODING COMPLIANCE AUDITOR Respiratory Rate 18 09/30/2021 10:38 AM CODING COMPLIANCE AUDITOR Oxygen Saturation 100% 09/30/2021 10:38 AM CODING COMPLIANCE AUDITOR Inhaled Oxygen Concentration - - Weight 78.6 kg (173 lb 3.2 oz) 09/30/2021 10:38 AM CODING COMPLIANCE AUDITOR Height 177.8 cm (5' 10) 09/30/2021 10:38 AM CODING COMPLIANCE AUDITOR Body Mass Index 24.85 09/30/2021 10:38 AM CODING COMPLIANCE AUDITOR Plan of Treatment Health Maintenance Due Date Last Done Comments HIV SCREENING 2010 HEPATITIS C SCREENING 07/26/2013 DTAP/TDAP/TD VACCINES (1 - Tdap) 2014 HEPATITIS B VACCINE (1 of 3 - 19+ 3-dose series) 2014 HPV VACCINE (1 - 3-dose SCDM series) 2022 COVID-19 VACCINE (3 - 2023-2 5 season) 2024 10/23/2020, 09/25/2020 DEPRESSION SCREENING 09/21/2024 INFLUENZA VACCINE (#1) 2025 , 07/29/2019 ZOSTER VACCINE (1 of 2) 2045 [...] week prior to your last dose Insurance [facility] AETNA MEDICAID - OUT OF [facility] Care Teams Health And Wellness Manager Relationship Specialty Start Date End Date Rogelio Yoo MD [address] [facility] [address] [place], [place] [id number] PCP - General Family Medicine 12/09/18
--- OUTSIDE RECORDS SUMMARY | 2025-04-06 07:34 | XMS_ITS | Clinical Summary ---
Author Organization [facility] Address [address] [place] [address] Care Team Providers Care Slate Cutter Operator Name Role Phone Rogelio Yoo MD Primary Care Provider +1- [phone] Allergies No known active allergies Medications No [...] on file Legal Sex Male 10:24 AM SIGNALS COLLECTOR/ANALYST Gender Identity Not on file Sexual Orientation Not on file Last Filed Vital Signs Vital Sign Reading Time Taken Comments Blood Pressure 116/63 08/13/2018 9:10 AM SIGNALS COLLECTOR/ANALYST Pulse 66 08/13/2018 9:10 AM SIGNALS COLLECTOR/ANALYST Temperature 36.7 C (98.1 F) 08/13/2018 8:43 AM SIGNALS COLLECTOR/ANALYST Respiratory Rate 19 08/13/2018 9:10 AM SIGNALS COLLECTOR/ANALYST Oxygen Saturation 98% 08/13/2018 9:10 AM SIGNALS COLLECTOR/ANALYST Inhaled Oxygen Concentration - - Weight 72.1 kg (159 lb) 08/10/2018 4:45 PM SIGNALS COLLECTOR/ANALYST Height 177.8 cm (5' 10) 08/10/2018 4:45 PM SIGNALS COLLECTOR/ANALYST Body Mass Index 22.81 08/10/2018 4:45 PM SIGNALS COLLECTOR/ANALYST Plan of Treatment Health Maintenance Due Date [...] to complete this topic Insurance Care Teams Slate Cutter Operator Relationship Specialty Start Date End Date Rogelio Yoo MD [address] [address] PCP - General FAMILY PRACTICE 08/13/18
== END 2025-04-06 07:31 | disposition home or self-care (01) ==
PROVIDERS: PCP Family Medicine; Visit Provider Family Medicine
DX: R93.89 Abnormal findings on diagnostic imaging of other specified body structures (principal)
CPT/HCPCS: 71260; Q9967

== ENCOUNTER 2025-04-27 15:15 | Emergency (ER) | payer OTHER, SELFPAY ==
--- NOTE | ~2025-04-27 | CT_ITS ---
CTA brain carotid Ordering provider: Sameera Razo PA-C History: . 29-year-old gentleman with a several month history of vertigo presents with one-month hist ory of left-sided headaches radiating into the left jaw with an approximately 5 hour history of weakn ess and numbness of the left upper and lower extremity, with an unremarkable neuro examination. Comparison: 02/07/2012 Technique: CT angiogram head and neck was performed following timed intravenous injection of contrast . Thin slice axial images and reformatted coronal images were obtained. Three dimensional reformatted images of the brain were also obtained using a Velti workstation. DLP: 1706 mGy-cm FINDINGS: HEAD: --ANTERIOR AND MIDDLE CEREBRAL ARTERIES AND BRANCHES: Normal caliber and contour. --INTERNAL CAROTID ARTERIES: Normal caliber and contour. --BASILAR ARTERY AND BRANCHES: Normal caliber and contour. No atheromatous disease. --POSTERIOR CEREBRAL ARTERIES: Normal caliber and contour --POSTERIOR COMMUNICATING ARTERIES: Not well visualized likely related to congenital absence or small size. --ANEURYSM: None visualized. --BRAIN: The ventricles are normal in size, shape and position. There is no mass, mass effect or midline shift. There is no abnormal extra-axial fluid collection or intracranial hemorrhage. Visualized paranasal sinuses are clear. The mastoid air cells are well aerated. No acute displaced fractures within the overlying cranium. NECK: --RIGHT CERVICAL CAROTID SYSTEM: Normal caliber and contour. Percent stenosis per NASCET criteria is 0% No carotid dissection. --LEFT CERVICAL CAROTID SYSTEM: Normal caliber and contour. Percent stenosis per NASCET criteria is 0% No carotid dissection. --VERTEBRAL ARTERIES: Normal caliber and contour. --VISUALIZED AORTIC ARCH AND BRANCHING VESSELS: Normal caliber and contour. No significant atheromato us disease. --SOFT TISSUES: Unremarkable --CERVICAL SPINE: No significant degenerative changes. IMPRESSION: 1. Normal CTA head and neck. Percent stenosis per NASCET criteria is 0%. 2. No acute intracranial hemorrhage or suspicious mass effect Reviewed, dictated and finalized at location A.
--- OUTSIDE RECORDS SUMMARY | 2025-04-27 15:17 | XMS_ITS | Clinical Summary ---
Author Organization [facility] Address [address] [place] [address] Care Team Providers Care Uptwist Spinner Name Role Phone Rogelio Yoo MD Primary Care Provider + Source Comments [facility],non-owned Affiliates and Associated Physician Practices is amultiple site organization consisting of ambulatory clinics and hospital sitesin [place], [place], [place] and [place]. This disclosure is being madepursuant to the Care Everywhere program and may not contain all information available regarding this patient. Last updated 18.[facility] Allergies No known active allergies Medications * Be aware that medications may not be up to date on this document. Alwaysverify current medications with the patient. ALPRAZolam (XANAX) 0.25 MG tablet Take 0.25 mg by mouth 3 times daily as needed for Anxiety Active fluticasone propionate (FLONASE) 50 MCG/ACT nasal spray Newcomb 2 sprays into each nostril once daily [...] May 2019 first office visit at [facility]. Significant regurgitation after meals and belching. 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 Gender Identity Male 06/04/2021 2:11 PM CDT Sexual Orientation Straight 06/04/2021 2: 11 PM CDT Last Filed Vital Signs Vital Sign Reading Time Taken Comments Blood Pressure 112/60 09/30/2021 10:38 AM AUTOMOTIVE GLASS INSTALLER Pulse 69 09/30/2021 10:38 AM AUTOMOTIVE GLASS INSTALLER Temperature 36.8 C (98.2 F) 09/30/2021 10:38 AM AUTOMOTIVE GLASS INSTALLER Respiratory Rate 18 09/30/2021 10:38 AM AUTOMOTIVE GLASS INSTALLER Oxygen Saturation 100% 09/30/2021 10:38 AM AUTOMOTIVE GLASS INSTALLER Inhaled Oxygen Concentration - - Weight 78.6 kg (173 lb 3.2 oz) 09/30/2021 10:38 AM AUTOMOTIVE GLASS INSTALLER Height 177.8 cm (5' 10) 09/30/2021 10:38 AM AUTOMOTIVE GLASS INSTALLER Body Mass Index 24.85 09/30/2021 10:38 AM AUTOMOTIVE GLASS INSTALLER Plan of Treatment Health Maintenance Due Date [...] week prior to your last dose Insurance [facility] AETNA MEDICAID - OUT OF [facility] Care Teams Uptwist Spinner Relationship Specialty Start Date End Date Rogelio Yoo MD [address] [address] [place], [place] [id number] PCP - General Family Medicine 12/09/18
--- OUTSIDE RECORDS SUMMARY | 2025-04-27 15:17 | XMS_ITS | Clinical Summary ---
Author Organization [facility] Address [address] [place] [address] Care Team Providers Care In Home Tutor Name Role Phone Rogelio Yoo MD Primary [...] - May 2019 first office visit at [facility]. Significant regurgitation after meals and belching. Given bethanecol and simethicone. No improvement - 2018 24hr pH impedence Encounters Date Type Department Care Team Description 04/13/2025 8:44 AM CDT - 04/13/2025 11:59 PM CDT Hospital Encounter [facility] Cardiac Testing [address] [place] [address] Supravalvular aortic stenosis Discharge Disposition: Discharge to home or self care 01/30/2025 2:50 PM CDT Office Visit [facility] Orthopaedic Surgery [address] [place] [address] [place] [address] Kyle Santos IV, MD Complex tear of [...] Comments Blood Pressure 126/81 09/28/2024 1:10 PM PICTURE PAINTER Pulse 68 09/28/2024 1:15 PM PICTURE PAINTER Temperature 36.7 C (98.1 F) 09/28/2024 12:28 PM PICTURE PAINTER Respiratory Rate 18 09/28/2024 1:15 PM PICTURE PAINTER Oxygen Saturation 100% 09/28/2024 1:15 PM PICTURE PAINTER Inhaled Oxygen Concentration - - Weight 78 kg (172 lb) 09/28/2024 11:36 AM PICTURE PAINTER Height 177.8 cm (5' 10) 09/28/2024 11:36 AM PICTURE PAINTER Body Mass Index 24.68 09/28/2024 11:36 AM PICTURE PAINTER Plan of Treatment Health Maintenance Due Date Last Done Comments Depression Screening 1995 Hepatitis C Screening 1995 Varicella Vaccines (2 of 2 - 2-dose childhood series) 1999 01/26/1997 DTaP/Tdap/Td Vaccine (5 - Tdap) 2006 12/23/1996, 03/14/1996, 01/07/1996, Additional history exists Regular Well Visit/Exam 18-64 2013 HPV Vaccines (1 - 3-dose SCDM series) 2022 Covid-19 Vaccine ( - 2023- season) 2024 07/05/2023, 08/09/2021, 10/23/2020, Additional history exists Influenza Vaccine (#1) 2025 , 07/05/2023, 06/25/2022, Additional history exists Hepatitis B Screening Completed 03/14/1996 , 1995, 1995, Additional history exists Pneumococcal vaccine <65 Aged Out No longer eligible based on patient's age to complete this topic Procedures Procedure Name Priority Date/Time Associated Diagnosis Comments TRANSTHORACIC ECHO (TTE) COMPLETE W DOPPLER/CF WO CONTRAST Routine 04/13/2025 9:24 AM CDT Supravalvular aortic stenosis from Last 3 Months Results * TRANSTHORACIC ECHO (TTE) COMPLETE W DOPPLER/CF WO CONTRAST (04/13/2025 9:24 AM CDT) Estimated EF 55-60 % CONS SCIMAGE EF Mod BP 60 % CONS SCIMAGE Anatomical Region Laterality Modality Ultrasound 04/13/2025 8:48 AM CDT Narrative 04/13/2025 9:18 PM CDT Transthoracic Echocardiographic Report Patient Name: ROSS MURDOCK J : 1995 (29y 8m) Gender: M Study Date: 04/13/2025 08:48:14 AM Ht(Inch): 70 Wt(Lb): 172 BSA: 1.96 Knotter Hand: Jenny Nuñez RDCS Heart Rate: 72 BMI: 24.68 BP: 126 / 81 Ref Provider: PROCEDURES: Echocardiographic Report: ([id number], [id number]) Transthoracic complete echo with strain imaging, 2D, spectral and tissue Doppler, color flow Doppler, M-mode. INDICATIONS: Q25.3 Supravalvular aortic stenosis. FINDINGS: Left Ventricle: Normal left ventricular systolic function. The Ejection Fraction (Constantino's) is measured at 60 %. The Ejection Fraction is visually estimated to be 55-60 %. Regional Wall Motion: There are no regional wall motion abnormalities. Right Ventricle: Normal right ventricular size. Normal right ventricular systolic function. Left Atrium: The left atrium is normal in size. Right Atrium: The right atrium is normal in size. Atrial Septum: No shunt by color Doppler. Mitral Valve: Normal mitral valve leaflet structure. No mitral regurgitation seen. No mitral valve stenosis. Aortic Valve: Trileaflet aortic valve. No aortic regurgitation seen. No aortic valve stenosis. Tricuspid Valve: The tricuspid valve demonstrates normal leaflet structure. No tricuspid regurgitation seen. Normal estimated pulmonary artery systolic pressure. No tricuspid valve stenosis. Pulmonic Valve: No evidence of pulmonic regurgitation. Pericardium: No pericardial effusion noted. Aorta: Normal aortic root. The aortic Sinus is normal in size. IVC: IVC is normal in size. The estimated RA pressure is 3 mmHg. CONCLUSIONS: 1. Normal left ventricular systolic function. The Ejection Fraction (Constantino's) is measured at 60 %. The Ejection Fraction is visually estimated to be 55-60 %. 2. No aortic valve stenosis. 3. Normal aortic root. MEASUREMENTS: 2D/MM Value Range Doppler Value LVIDd 2D 5.08 cm [ 3.50 - 5.70 ] AV Peak Abelardo 0.98 m/s LVIDs 2D 3.55 cm [ 3.10 - 4.60 ] AV Peak PG 3.84 mmHg IVSd 2D 0.68 cm [ 0.60 - 1.20 ] LVOT Peak Abelardo 0.88 m/s LVPWd 2D 0.68 cm [ 0.60 - 1.10 ] LVOT Peak PG 3.10 mmHg LV Thickness Ratio 1.00 LVOT Diam 2.00 cm LV Mass 2D 117.94 g SHAWN Vmax 2.82 cm2 LV Mass Index 2D 60.17 g/m2 MV E Peak Abelardo 0.66 m/s RWT 0.27 MV A Peak Abelardo 0.50 m/s EDV Mod BP 132.00 ml [ 62.00 - 150.00 ] MV E/A 1.30 ratio LV EDV Index 67.35 ml/m2 MV Decel Time 161.00 msec ESV Mod BP 52.90 ml [ 21.00 - 61.00 ] Med E` Abelardo 0.10 m/s EF Mod BP 60 % [ 52 - 72 ] Lat E` Abelardo 0.15 m/s Visually Estimated EF 55-60 % Average E/E` 528.00 LA Dimension 2D 3.10 cm [ 1.90 - 4.00 ] RV S` 12.00 cm/sec LA Length 2C 3.96 cm RA Pressure 3.00 mmHg LA Length 4C 4.60 cm PV Peak Abelardo 0.84 m/s LA Volume BP 35.80 ml PV Peak PG 2.82 mmHg LA Volume Index 18.27 ml/m2 [ 16.00 - 34.00 ] TAPSE 1.75 cm [ 1.71 - 5.00 ] AoR Diam 2D 3.40 cm [ 2.00 - 3.70 ] Ao Root Index 1.73 cm/m2 [ 1.00 - 2.00 ] Asc Ao Diam 2D 3.00 cm Asc Ao Index 1.53 cm/m2 - ATTESTATION: I have reviewed and interpreted the pertinent images and measurements of this study. I attest to the conclusions in the final report that is provided above. DISCLAIMER: The study images and the final report will be retained in the patient chart by the Echo Laboratory for the legally required time period. This chart constitutes the legal record of any testing performed. Electronically Signed By: Nikolai Schreiber MD 04/13/2025 9:17:51 PM CDT Procedure Note Nikolai Schreiber MD - 04/13/2025 Transthoracic Echocardiographic Report Patient Name: ROSS MURDOCK J : 1995 (29y 8m) Gender: M Study Date: 04/13/2025 08:48:14 AM Ht(Inch): 70 Wt(Lb): 172 BSA: 1.96 Knotter Hand: Jenny Nuñez RDCS Heart Rate: 72 BMI: 24.68 BP: 126 /81 Ref Provider: PROCEDURES: Echocardiographic Report: ([id number], [id number]) Transthoracic complete echo withstrain imaging, 2D, spectral and tissue Doppler, color flow Doppler, M-mode. INDICATIONS: Q25.3 Supravalvular aortic stenosis. FINDINGS: Left Ventricle: Normal left ventricular systolic function. The EjectionFraction (Constantino's) is measured at 60 %. The Ejection Fraction is visuallyestimated to be 55-60 %. Regional Wall Motion: There are no regional wall motion abnormalities. Right Ventricle: Normal right ventricular size. Normal right ventricularsystolic function. Left Atrium: The left atrium is normal in size. Right Atrium: The right atrium is normal in size. Atrial Septum: No shunt by color Doppler. Mitral Valve: Normal mitral valve leaflet structure. No mitralregurgitation seen. No mitral valve stenosis. Aortic Valve: Trileaflet aortic valve. No aortic regurgitation seen. Noaortic valve stenosis. Tricuspid Valve: The tricuspid valve demonstrates normal leafletstructure. No tricuspid regurgitation seen. Normal estimated pulmonary artery systolic pressure.No tricuspid valve stenosis. Pulmonic Valve: No evidence of pulmonic regurgitation. Pericardium: No pericardial effusion noted. Aorta: Normal aortic root. The aortic Sinus is normal in size. IVC: IVC is normal in size. The estimated RA pressure is 3 mmHg. CONCLUSIONS: 1. Normal left ventricular systolic function. The Ejection Fraction(Constantino's) is measured at 60 %. The Ejection Fraction is visually estimated to be 55-60%. 2. No aortic valve stenosis. 3. Normal aortic root. MEASUREMENTS: 2D/MM Value Range DopplerValue LVIDd 2D 5.08 cm [ 3.50 - 5.70 ] AV Peak Vel0.98 m/s LVIDs 2D 3.55 cm [ 3.10 - 4.60 ] AV Peak PG3.84 mmHg IVSd 2D 0.68 cm [ 0.60 - 1.20 ] LVOT PeakVel 0.88 m/s LVPWd 2D 0.68 cm [ 0.60 - 1.10 ] LVOT Peak PG3.10 mmHg LV Thickness Ratio 1.00 LVOT Diam2.00 cm LV Mass 2D 117.94 g SHAWN Vmax2.82 cm2 LV Mass Index 2D 60.17 g/m2 MV E PeakVel 0.66 m/s RWT 0.27 MV A PeakVel 0.50 m/s EDV Mod BP 132.00 ml [ 62.00 - 150.00 ] MV E/A1.30 ratio LV EDV Index 67.35 ml/m2 MV DecelTime 161.00 msec ESV Mod BP 52.90 ml [ 21.00 - 61.00 ] Med E` Vel0.10 m/s EF Mod BP 60 % [ 52 - 72 ] Lat E` Vel0.15 m/s Visually Estimated EF 55-60 % Average E/E`528.00 LA Dimension 2D 3.10 cm [ 1.90 - 4.00 ] RV S`12.00 cm/sec LA Length 2C 3.96 cm RA Pressure3.00 mmHg LA Length 4C 4.60 cm PV Peak Vel0.84 m/s LA Volume BP 35.80 ml PV Peak PG2.82 mmHg LA Volume Index 18.27 ml/m2 [ 16.00 - 34.00 ] TAPSE 1.75 cm [ 1.71 - 5.00 ] AoR Diam 2D 3.40 cm [ 2.00 - 3.70 ] Ao Root Index 1.73 cm/m2 [ 1.00 - 2.00 ] Asc Ao Diam 2D3.00 cm Asc Ao Index1.53 cm/m2 - ATTESTATION: I have reviewed and interpreted the pertinent images and measurements ofthis study. I attest to the conclusions in the final report that is provided above. DISCLAIMER: The study images and the final report will be retained in the patientchart by the Echo Laboratory for the legally required time period. This chart constitutesthe legal record of any testing performed. Electronically Signed By: Nikolai Schreiber MD 04/13/2025 9:17:51 PM CDT [facility] Kaycee Valverde DO CV ECHO PROCEDURES Final Re sult from Last 3 Months Insurance AETNA [facility] HMO AETNA [facility] HMO Care Teams In Home Tutor Relationship Specialty Start Date End Date Rogelio Yoo MD [address] [place] [address] PCP - General Family Medicine 04/25/24
--- OUTSIDE RECORDS SUMMARY | 2025-04-27 15:17 | XMS_ITS | Clinical Summary ---
Author Organization [facility] Address [address] [place] [address] Care Team Providers Care Scientific Advisor Name Role Phone Rogelio Yoo MD Primary Care Provider +1- [phone] Agnieszka Valverde DO Unavailable Allergies No known active allergies Medications No known medications Encounters Date Type Department Care Team Description 04/06/2025 Telephone [employer] [facility], [address] [address] Zoe Villegas, RMA Schedule Test (echo) from Last 3 Months Immunizations Immunization Administration Dates Next Due MODERNA [...] on file Legal Sex Male 10:24 AM SLOT FLOOR SUPERVISOR Gender Identity Not on file Sexual Orientation Not on file Last Filed Vital Signs Vital Sign Reading Time Taken Comments Blood Pressure 116/63 08/13/2018 9:10 AM SLOT FLOOR SUPERVISOR Pulse 66 08/13/2018 9:10 AM SLOT FLOOR SUPERVISOR Temperature 36.7 C (98.1 F) 08/13/2018 8:43 AM SLOT FLOOR SUPERVISOR Respiratory Rate 19 08/13/2018 9:10 AM SLOT FLOOR SUPERVISOR Oxygen Saturation 98% 08/13/2018 9:10 AM SLOT FLOOR SUPERVISOR Inhaled Oxygen Concentration - - Weight 72.1 kg (159 lb) 08/10/2018 4:45 PM SLOT FLOOR SUPERVISOR Height 177.8 cm (5' 10) 08/10/2018 4:45 PM SLOT FLOOR SUPERVISOR Body Mass Index 22.81 08/10/2018 4:45 PM SLOT FLOOR SUPERVISOR Plan of Treatment Health Maintenance Due Date Last Done Comments Annual Physical 1998 Hepatitis C 2013 DTaP, Tdap and Td Vaccines ( 1 - Tdap) 2014 Hepatitis B Vaccines (1 of 3 - 19+ 3-dose series) 2014 HPV Vaccines (1 - 3-dose SCD M series) 2022 COVID-19 Vaccine (3 - 2023-2 5 season) 2024 10/23/2020, 09/25/2020 Meningococcal B Vaccine Aged Out No l [...] age to complete this topic Insurance [employer] Care Teams Scientific Advisor Relationship Specialty Start Date End Date Rogelio Yoo MD [address] [address] PCP - General FAMILY PRACTICE 08/13/18 Agnieszka Valverde DO [address] [place] [address] FAMILY PRACTICE 04/06/25
[2025-04-27 15:18] VITALS: BP 128/75; PULSE 97; RESP 18; TEMP 36.9; O2SAT 99
--- NOTE | 2025-04-27 15:29 | ECG_ITS ---
Test Date: 2025-04-27 16:30:02 Measurements Intervals [place] Rate: 85 P: 74 MD: 146 QRS: 65 QRSD: 98 T: 50 QT: 317 QTc: 377 Interpretive Statements SINUS RHYTHM WITH SINUS ARRHYTHMIA ST ELEVATION IN DIFFUSE LEADS- PROBABLY EARLY REPOLARIZATION BASELINE ARTIFACT- I, AVR, AVL BORDERLINE ECG Compared to ECG 03/25/2025 19:59:30 No significant changes Electronically Signed On 04-27-2025 16:37:39 CDT by Tyler Zhao D.O.
--- NOTE | 2025-04-27 15:34 | ED_ITS ---
HPI - Headache General Chief Complaint: Headache <Sameera Razo PA-C - Last Filed: 04/27/25 15:36> Stated Complaint: headache <Sameera Razo PA-C - Last Filed: 04/27/25 15:36> Time Seen by Provider: 04/27/25 17:00 <Sameera Razo PA-C - Last Filed: 04/27/25 15:36> Focused HPI: 29-year-old male presents to the emergency department for reported left-sided weakness and numbness. Patient states he has had dizziness for several months which is currently being worked up outpatient by his PCP. About a month ago he began developing left-sided headaches that radiated into his left jaw with intermittent numbness in the left jaw. He states today at 12:00 p.m. he developed weakness and numbness to his left arm and left leg which concerned him and prompted him to come to the ED. He denies head injury or trauma, vision changes. He states he has had multiple outpatient workups by his PCP for his dizziness including echocardiogram, CT of his chest chest x-ray which have been reportedly unremarkable. He states his PCP is now ordered an MRA of his brain next week to evaluate for intracranial sources. GENERAL: Well-appearing, well-nourished, and in no acute distress. HEAD: Normocephalic, atraumatic. CHEST: Clear to auscultation. ?No respiratory distress. HEART: Regular rate and rhythm.? NEURO: ?Alert and oriented x4. Cranial nerves 2-12 are intact. Sensation is intact throughout and equal bilaterally per the patient. Strength is 5/5 in BUE and BLE. Normal udwe-[id number]. Normal dxshpq-yz-[id number]. No pronator drift. No extinction. NIHSS is 0 Patient screened in triage and initial orders placed.? ?Additional care and disposition to be based upon?diagnostic testing and treatment. <Sameera Razo PA-C - Last Filed: 04/27/25 15:36> History of Present Illness HPI Narrative: I agree with the assessment and documentation of Sameera Razo PA-C. < Jazmín Marie APRN - Last Filed: 04/27/25 19:15> Related Data Home Medications: Home Medications ?Medication ?Instructions ?Recorded ?Confirmed ?Last Taken ?Type docusate sodium 100 mg capsule 100 mg PO DAILY 07/19/20 04/19/25 Unknown History multivitamin,bm-cfcu-jqzdpkgy 1 tablet PO DAILY 07/19/20 04/19/25 Unknown History (Complete Multivitamin tablet) <Sameera Razo PA-C - Last Filed: 04/27/25 15:36> Allergies/Adverse Reactions: Allergies Allergy/AdvReac Type Severity Reaction Status Date / Time No Known Allergies Allergy Verified 04/27/25 15:16 <Sameera Razo PA-C - Last Filed: 04/27/25 15:36> Review of Systems 2 Review of Systems: All systems reviewed & are unremarkable except as noted in HPI and below <Jazmín Marie APRN - Last Filed: 04/27/25 19:15> [facility] Past Medical History Medical History: Medical History Hoffa's fat pad disease <Sameera Razo PA-C - Last Filed: 04/27/25 15:36> Surgical History Surgical History: Surgical History History of surgery on right wrist <Sameera Razo PA-C - Last Filed: 04/27/25 15:36> Family History Family History: Family History Grandparent Asthma <Sameera Razo PA-C - Last Filed: 04/27/25 15:36> Social History Social History: Social History Smoking status: Never smoker Alcohol intake: never Do You Feel Safe in your Home?: Yes Lack of Transportation: No Lack of Food: Never True Current Housing: I Have Housing Concerned About Future Housing: No Difficulty Paying Gas/Electric Bills: No Difficulty Paying for Meds: No Currently Unemployed: No Education: Master's Degree or Higher Difficulty w/ Childcare or Family Care: No Occupation/Education: occupation Additional occupation/education comments: Pharmacist- [employer] Gender identity (if verbalized by the patient): Male <Sameera Razo PA-C - Last Filed: 04/27/25 15:36> Exam 2 Narrative: GENERAL: Well appearing, well-nourished, non-toxic, in no acute distress. HEAD: Normocephalic, atraumatic. NECK: Supple. No adenopathy, no masses. RESPIRATORY: Airway patent, respirations nonlabored. Clear to auscultation bilaterally, no rales, rhonchi, wheezing. CARDIOVASCULAR: Regular rate and rhythm without murmurs, rubs, or gallops. Peripheral pulses 2+ and equal bilaterally. ABDOMINAL: Soft, nontender, nondistended, no hepatosplenomegaly. Normoactive BS. MUSCULOSKELETAL: Moves all extremities. Strength/ROM intact without gross deformities. SKIN: Warm, dry, normal color. No rashes. NEURO: A&O X3. Speech clear. Cranial nerves II-XII intact. No ataxic movements. PSYCHIATRIC: Appropriate mood and affect. Normal interaction. <Jazmín Marie APRN - Last Filed: 04/27/25 19:15> Course Vital Signs Vital signs: Vital Signs Temperature 36.9 C 04/27/25 15:18 Pulse Rate 97 04/27/25 15:18 Respiratory Rate 18 04/27/25 15:18 Blood Pressure 128/75 04/27/25 15:18 Pulse Oximetry 99 04/27/25 15:18 Oxygen Delivery Room Air 04/27/25 15:18 Temperature 36.6 C 04/27/25 18:15 Pulse Rate 78 04/27/25 18:15 Respiratory Rate 16 04/27/25 18:15 Blood Pressure 118/80 04/27/25 18:15 Pulse Oximetry 99 04/27/25 18:15 Oxygen Delivery Room Air 04/27/25 15:18 <Sameera Razo PA-C - Last Filed: 04/27/25 15:36> Vital Signs Temperature 36.9 C 04/27/25 15:18 Pulse Rate 97 04/27/25 15:18 Respiratory Rate 18 04/27/25 15:18 Blood Pressure 128/75 04/27/25 15:18 Pulse Oximetry 99 04/27/25 15:18 Oxygen Delivery Room Air 04/27/25 15:18 Temperature 36.6 C 04/27/25 18:15 Pulse Rate 78 04/27/25 18:15 Respiratory Rate 16 04/27/25 18:15 Blood Pressure 118/80 04/27/25 18:15 Pulse Oximetry 99 04/27/25 18:15 Oxygen Delivery Room Air 04/27/25 15:18 <Jazmín Marie, COMPUTER NUMERICAL CONTROL PROGRAMMER - Last Filed: 04/27/25 19:15> MDM - Headache MDM Narrative Medical decision making narrative: 29-year-old male presents to the emergency department for reported left- sided weakness and numbness. Patient states he has had dizziness for several months which is currently being worked up outpatient by his PCP. About a month ago he began developing left-sided headaches that radiated into his left jaw with intermittent numbness in the left jaw. He states today at 12:00 p.m. he developed weakness and numbness to his left arm and left leg which concerned him and prompted him to come to the ED. He denies head injury or trauma, vision changes. He states he has had multiple outpatient workups by his PCP for his dizziness including echocardiogram, CT of his chest and chest x-ray which have been reportedly unremarkable. He states his PCP is now ordered an MRA of his brain next week to evaluate for intracranial sources. Labs Ordered: CBC, CMP, ESR, CRP, troponin, PTT, INR Imaging Ordered: CTA brain carotid scan Medications Ordered: 1 L normal saline IV bolus, Toradol IV, Benadryl IV, Compazine IV, Tylenol p.o., Magnesium IV, Solu-MedroIV (patient declined) Results: Pt's CT scan indicates . Normal CTA head and neck. Percent stenosis per NASCET criteria is 0%. 2. No acute intracranial hemorrhage or suspicious mass effect Patient's CBC was unremarkable any acute abnormalities. His CMP indicates a sodium of 136, creatinine of 0.64. Patient's troponin was negative. His CRP and ESR were both within normal limits. patient's coags were within normal limits. Diagnosis: Headache Patient Education/Shared MDM: Results of lab work and imaging shared with patient. He endorses improvement of symptoms following medication administration. Patient strongly advised to maintain hydration status upon discharge and follow-up with his PCP as soon as possible. He will be discharged home with no new prescriptions. Strict return precautions provided. Patient verbalized understanding and is in agreement with plan. Vital signs stable at time of discharge. All questions answered. <Jazmín Marie APRN - Last Filed: 04/27/25 19:15> Differential Diagnosis Differential diagnosis: Likely migraine, tension headache, subarachnoid hemorrhage and headache < Jazmín Marie APRN - Last Filed: 04/27/25 19:15> Lab Data Attestation: I reviewed the patient's lab results. <Jazmín Marie APRN - Last Filed: 04/27/25 19:15> Result diagrams: 04/27/25 16:22 04/27/25 16:22 <Sameera Razo PA-C - Last Filed: 04/27/25 15:36> Labs: Lab Results 04/27/25 Range/Units 16:22 WBC 7.9 (4.5-10.0) K/mm3 RBC 4.91 (4.6-6.20) M/mm3 Hgb 15.0 (14.0-18.0) g/dL Hct 45.5 (42.0-52.0) % MCV 92.7 (80-100) fl MCH 30.5 (26-34) pg MCHC 33.0 (32-36) g/dl RDW 13.7 (11.5-14.5) % Plt Count 290 (150-375) k/mm3 MPV 8.6 (7.4-10.4) fl Immature Gran % (Auto) 0.8 H (0-0.5) % Neut % (Auto) 87.2 H (45.5-73.1) % Lymph % (Auto) 5.7 L (18.3-44.2) % Gibson % (Auto) 6.2 (2.6-8.5) % Eos % (Auto) 0.0 (0-4.4) % Baso % (Auto) 0.1 L (0.2-1.2) % Lymph # (Auto) 0.45 L (0.9-3.2) K/mm3 Gibson # (Auto) 0.5 (0.1-0.6) K/mm3 Eos # (Auto) 0.0 (0-0.3) K/mm3 Baso # (Auto) 0.0 (0.0-0.1) K/mm3 Abs Immat Gran (auto) 0.06 H (0.00-0.031) K/mm3 Absolute Neuts (auto) 6.9 H (1.3-6.7) K/mm3 Absolute Nucleated RBC 0.000 (0.0-0.012) K/mm3 Nucleated RBC % 0.0 (0.0-0.2) % ESR 1 (0-20) mm/hr PT 14.0 (11.1-14.7) Seconds INR 1.1 APTT 22.6 (22.3-36.8) Seconds Sodium 136 L (137-145) mmol/L Potassium 4.8 (3.4-5.0) mmol/L Chloride 102 (98-107) mmol/L Carbon Dioxide 25 (22-30) mmol/L Anion Gap 9 (4-12) mmol/L BUN 13 (9-20) mg/dL Creatinine 0.64 L (0.7-1.3) mg/dL Estim Creat Clear Calc 150 ml/min Estimated GFR > 60 (59 - ) Glucose 123 H (65-110) mg/dL Calcium 9.2 (8.4-10.2) mg/dL Total Bilirubin 0.4 (0.2-1.3) mg/dL AST 24 (17-59) U/L ALT 22 (6-50) U/L Alkaline Phosphatase 51 (38-126) U/L Troponin I < 0.012 (0.000-0.034) ng/mL C-Reactive Protein < 0.5 (<1.0) mg/dL Total Protein 8.0 (6.3-8.2) g/dL Albumin 4.7 (3.5-5.1) g/dL <Sameera Razo PA-C - Last Filed: 04/27/25 15:36> Lab Results 04/27/25 Range/Units 16:22 WBC 7.9 (4.5-10.0) K/mm3 RBC 4.91 (4.6-6.20) M/mm3 Hgb 15.0 (14.0-18.0) g/dL Hct 45.5 (42.0-52.0) % MCV 92.7 (80-100) fl MCH 30.5 (26-34) pg MCHC 33.0 (32-36) g/dl RDW 13.7 (11.5-14.5) % Plt Count 290 (150-375) k/mm3 MPV 8.6 (7.4-10.4) fl Immature Gran % (Auto) 0.8 H (0-0.5) % Neut % (Auto) 87.2 H (45.5-73.1) % Lymph % (Auto) 5.7 L (18.3-44.2) % Gibson % (Auto) 6.2 (2.6-8.5) % Eos % (Auto) 0.0 (0-4.4) % Baso % (Auto) 0.1 L (0.2-1.2) % Lymph # (Auto) 0.45 L (0.9-3.2) K/mm3 Gibson # (Auto) 0.5 (0.1-0.6) K/mm3 Eos # (Auto) 0.0 (0-0.3) K/mm3 Baso # (Auto) 0.0 (0.0-0.1) K/mm3 Abs Immat Gran (auto) 0.06 H (0.00-0.031) K/mm3 Absolute Neuts (auto) 6.9 H (1.3-6.7) K/mm3 Absolute Nucleated RBC 0.000 (0.0-0.012) K/mm3 Nucleated RBC % 0.0 (0.0-0.2) % ESR 1 (0-20) mm/hr PT 14.0 (11.1-14.7) Seconds INR 1.1 APTT 22.6 (22.3-36.8) Seconds Sodium 136 L (137-145) mmol/L Potassium 4.8 (3.4-5.0) mmol/L Chloride 102 (98-107) mmol/L Carbon Dioxide 25 (22-30) mmol/L Anion Gap 9 (4-12) mmol/L BUN 13 (9-20) mg/dL Creatinine 0.64 L (0.7-1.3) mg/dL Estim Creat Clear Calc 150 ml/min Estimated GFR > 60 (59 - ) Glucose 123 H (65-110) mg/dL Calcium 9.2 (8.4-10.2) mg/dL Total Bilirubin 0.4 (0.2-1.3) mg/dL AST 24 (17-59) U/L ALT 22 (6-50) U/L Alkaline Phosphatase 51 (38-126) U/L Troponin I < 0.012 (0.000-0.034) ng/mL C-Reactive Protein < 0.5 (<1.0) mg/dL Total Protein 8.0 (6.3-8.2) g/dL Albumin 4.7 (3.5-5.1) g/dL <Jazmín Marie APRN - Last Filed: 04/27/25 19:15> Imaging Data Attestation: I personally reviewed and interpreted this imaging study as follows: < Jazmín Marie APRN - Last Filed: 04/27/25 19:15> Radiologist's impression: Impressions Head/Neck CTA 04/27/25 17:40 IMPRESSION: 1. Normal CTA head and neck. Percent stenosis per NASCET criteria is 0%. 2. No acute intracranial hemorrhage or suspicious mass effect <Jazmín Marie APRN - Last Filed: 04/27/25 19:15> Discharge Plan Discharge Clinical Impression: Left temporal headache, Dehydration, mild <Sameera Razo PA-C - Last Filed: 04/27/25 15:36> Patient Disposition: Home <SHILO Delgado Last Filed: 04/27/25 15:36> Condition: Stable <SHILO Delgado Last Filed: 04/27/25 15:36> Instructions: Antibiotic Form, Acute Headache (ED) <SHILO Delgado Last Filed: 04/27/25 15:36> Additional Instructions: Please return to the ER with any worsening symptoms. Follow-up with primary care provider as soon as possible. Take all medications as prescribed, including regularly scheduled medications. <Sameera Razo PA-C - Last Filed: 04/27/25 15:36> Patient Language: Pashto <SHILO Delgado Last Filed: 04/27/25 15:36> Prescriptions: No Action docusate sodium 100 mg capsule 100 mg PO DAILY Complete Multivitamin Tablet 1 tablet PO DAILY prednisone 10 mg tablet See Rx Instructions PO DIRECTED Qty: 84 0RF Rx Instructions: Take 6 daily (60 mg) for 4 days, 5 daily (50 mg) for 4 days, 4 daily (40 mg) for 4 days, 3 daily (30 mg) for 4 days, 2 daily (20 mg) for 4 days, then 1 daily 1(10 mg) for 4 days orally as directed; see taper instructions loratadine 10 mg tablet See Rx Instructions .ROUTE .COMPLEX Qty: 30 5RF Dose Instruction: TAKE 1 TABLET BY MOUTH EVERY DAY Rx Instructions: TAKE 1 TABLET BY MOUTH EVERY DAY naproxen 500 mg tablet 500 mg PO BID Qty: 60 2RF omeprazole 40 mg capsule,delayed release(DR/EC) 40 mg PO DAILY Qty: 90 1RF <Sameera Razo PA-C - Last Filed: 04/27/25 15:36> Follow-up/Referrals: Agnieszka Valverde DO [Primary Care Provider] - <Sameera Razo PA-C - Last Filed: 04/27/25 15:36>
[2025-04-27] MEDS: ACETAMINOPHEN 500 MG TABLET 1000 MG PO (16:28)
[2025-04-27 16:30] LABS: Hematocrit 45.5 % (42.0-52.0); Hemoglobin 15.0 g/dL (14.0-18.0); Immature Granulocyte Percent A 0.8 % (0-0.5); Lymphocytes Absolute Auto 0.45 K/mm3 (0.9-3.2); Mean Corpuscular HGB Conc 33.0 g/dl (32-36); Mean Corpuscular Hemoglobin 30.5 pg (26-34); Mean Corpuscular Volume 92.7 fl (80-100); Nucleated Red Blood Cells Absolute Auto 0.000 K/mm3 (0.0-0.012); Nucleated Red Blood Cells Perc 0.0 % (0.0-0.2); Platelet Count Result 290 k/mm3 (150-375); Red Blood Count 4.91 M/mm3 (4.6-6.20); White Blood Count 7.9 K/mm3 (4.5-10.0)
[2025-04-27 16:40] LABS: INR 1.1; Prothrombin Time 14.0 Seconds (11.1-14.7)
[2025-04-27 16:41] LABS: Partial Thromboplastin Time 22.6 Seconds (22.3-36.8)
[2025-04-27 16:47] LABS: Alanine Aminotransferase 22 U/L (6-50); Albumin Level 4.7 g/dL (3.5-5.1); Alkaline Phosphatase 51 U/L (38-126); Anion Gap 9 mmol/L (4-12); Aspartate Amino Transferase 24 U/L (17-59); Bilirubin,Total 0.4 mg/dL (0.2-1.3); Blood Urea Nitrogen 13 mg/dL (9-20); Calcium 9.2 mg/dL (8.4-10.2); Carbon Dioxide 25 mmol/L (22-30); Chloride 102 mmol/L (98-107); Estimated CRCL calculation 150 ml/min; Estimated Glomerular Filt Rate > 60; Glucose 123 mg/dL (65-110); Potassium 4.8 mmol/L (3.4-5.0); Sodium 136 mmol/L (137-145); Total Protein 8.0 g/dL (6.3-8.2)
[2025-04-27 17:01] VITALS: BP 130/82; PULSE 82; RESP 20; TEMP 36.8; O2SAT 96
[2025-04-27] MEDS: SODIUM CHLORIDE 0.9% IV 1,000 ML 999 ML IV CONT (17:05)
[2025-04-27] MEDS: PROCHLORPERAZINE EDISYLATE 10 MG/2 ML VIAL IV PUSH (17:06)
--- OUTSIDE RECORDS SUMMARY | 2025-04-27 17:14 | XMS_ITS | Clinical Summary ---
Author Organization [facility] Address [address] [place] [address] Care Team Providers Care Handbag Parts Cutter Name Role Phone Rogelio Yoo MD Primary Care Provider + Source Comments [facility],non-owned Affiliates and Associated Physician Practices is amultiple site organization consisting of ambulatory clinics and hospital sitesin [place], [place], [place] and [place]. This disclosure is being madepursuant to the Care Everywhere program and may not contain all information available regarding this patient. Last updated 18.[facility] Allergies No known active allergies Medications * Be aware that medications may not be up to date on this document. Alwaysverify current medications with the patient. ALPRAZolam (XANAX) 0.25 MG tablet Take 0.25 mg by mouth 3 times daily as needed for Anxiety Active fluticasone propionate (FLONASE) 50 MCG/ACT nasal spray [place] 2 sprays into each nostril once daily [...] - May 2019 first office visit at [facility]. Significant regurgitation after meals and [...] PM CDT Legal Sex Male 5:38 AM COMBINATION WINDOW INSTALLER Gender Identity Male 06/04/2021 2:11 PM CDT Sexual Orientation Straight 06/04/2021 2: 11 PM CDT Last Filed Vital Signs Vital Sign Reading Time Taken Comments Blood Pressure 112/60 09/30/2021 10:38 AM COMBINATION WINDOW INSTALLER Pulse 69 09/30/2021 10:38 AM COMBINATION WINDOW INSTALLER Temperature 36.8 C (98.2 F) 09/30/2021 10:38 AM COMBINATION WINDOW INSTALLER Respiratory Rate 18 09/30/2021 10:38 AM COMBINATION WINDOW INSTALLER Oxygen Saturation 100% 09/30/2021 10:38 AM COMBINATION WINDOW INSTALLER Inhaled Oxygen Concentration - - Weight 78.6 kg (173 lb 3.2 oz) 09/30/2021 10:38 AM COMBINATION WINDOW INSTALLER Height 177.8 cm (5' 10) 09/30/2021 10:38 AM COMBINATION WINDOW INSTALLER Body Mass Index 24.85 09/30/2021 10:38 AM COMBINATION WINDOW INSTALLER Plan of Treatment Health Maintenance Due [...] week prior to your last dose Insurance [facility] [employer] MEDICAID - OUT OF [facility] Care Teams Handbag Parts Cutter Relationship Specialty Start Date End Date Rogelio Yoo MD [address] [place], [place] [id number] PCP - General Family Medicine 12/09/18
--- OUTSIDE RECORDS SUMMARY | 2025-04-27 17:14 | XMS_ITS | Clinical Summary ---
Author Organization [facility] Address [address] [place] [id number] Care Team Providers Care Cnmt Name Role Phone Rogelio Yoo MD Primary [...] - May 2019 first office visit at [facility]. Significant regurgitation after meals and belching. Given bethanecol and simethicone. No improvement - 2018 24hr pH impedence Encounters Date Type Department Care Team Description 04/13/2025 8:44 AM CDT - 04/13/2025 11:59 PM CDT Hospital Encounter [facility] [address] [place] [address] Supravalvular aortic stenosis Discharge Disposition: Discharge to home or self care 01/30/2025 2:50 PM CDT Office Visit [facility] Surgery [address] [place] [address] [place] [address] Kyle Santos IV, MD Complex tear of [...] Comments Blood Pressure 126/81 09/28/2024 1:10 PM PRINCIPAL RESEARCH ECONOMIST Pulse 68 09/28/2024 1:15 PM PRINCIPAL RESEARCH ECONOMIST Temperature 36.7 C (98.1 F) 09/28/2024 12:28 PM PRINCIPAL RESEARCH ECONOMIST Respiratory Rate 18 09/28/2024 1:15 PM PRINCIPAL RESEARCH ECONOMIST Oxygen Saturation 100% 09/28/2024 1:15 PM PRINCIPAL RESEARCH ECONOMIST Inhaled Oxygen Concentration - - Weight 78 kg (172 lb) 09/28/2024 11:36 AM PRINCIPAL RESEARCH ECONOMIST Height 177.8 cm (5' 10) 09/28/2024 11:36 AM PRINCIPAL RESEARCH ECONOMIST Body Mass Index 24.68 09/28/2024 11:36 AM PRINCIPAL RESEARCH ECONOMIST Plan of Treatment Health Maintenance Due Date [...] AM Ht(Inch): 70 Wt(Lb): 172 BSA: 1.96 Automation Tender: Jenny Nuñez RDCS Heart Rate: 72 BMI: 24.68 BP: 126 / 81 Ref Provider: PROCEDURES: Echocardiographic Report: ([id number], [id number]) Transthoracic complete echo with strain imaging, 2D, [...] AM Ht(Inch): 70 Wt(Lb): 172 BSA: 1.96 Automation Tender: Jenny Nuñez RDCS Heart Rate: 72 BMI: 24.68 BP: 126 /81 Ref Provider: PROCEDURES: Echocardiographic Report: ([id number], [id number]) Transthoracic complete echo withstrain imaging, 2D, spectral [...] Nikolai Schreiber MD 04/13/2025 9:17:51 PM CDT [facility] Kaycee Valverde DO CV ECHO PROCEDURES Final Re sult from Last 3 Months Insurance [facility] H[facility] H[facility] Care Teams Cnmt Relationship Specialty Start Date End Date Rogelio Yoo MD [address] [place] [address] PCP - General Family Medicine 04/25/24
--- OUTSIDE RECORDS SUMMARY | 2025-04-27 17:14 | XMS_ITS | Clinical Summary ---
Author Organization [facility] Address [address] [place] [address] Care Team Providers Care Furniture Repairer Name Role Phone Rogelio Yoo MD Primary Care Provider [phone]- [phone] Agnieszka Valverde DO Unavailable Allergies No known active allergies Medications No known medications Encounters Date Type Department Care Team Description 04/06/2025 [employer] [facility], [place], [address] [address] Zoe Villegas, RMA Schedule Test [...] on file Legal Sex Male 10:24 AM STORM CHASER Gender Identity Not on file Sexual Orientation Not on file Last Filed Vital Signs Vital Sign Reading Time Taken Comments Blood Pressure 116/63 08/13/2018 9:10 AM STORM CHASER Pulse 66 08/13/2018 9:10 AM STORM CHASER Temperature 36.7 C (98.1 F) 08/13/2018 8:43 AM STORM CHASER Respiratory Rate 19 08/13/2018 9:10 AM STORM CHASER Oxygen Saturation 98% 08/13/2018 9:10 AM STORM CHASER Inhaled Oxygen Concentration - - Weight 72.1 kg (159 lb) 08/10/2018 4:45 PM STORM CHASER Height 177.8 cm (5' 10) 08/10/2018 4:45 PM STORM CHASER Body Mass Index 22.81 08/10/2018 4:45 PM STORM CHASER Plan of Treatment Health Maintenance Due Date [...] complete this topic Insurance [employer] Care Teams Furniture Repairer Relationship Specialty Start Date End Date Rogelio Yoo MD [address] [address] PCP - General FAMILY PRACTICE 08/13/18 Agnieszka Valverde DO [address] [place] [address] FAMILY PRACTICE 04/06/25
[2025-04-27 17:18] LABS: Troponin I < 0.012 ng/mL (0.000-0.034)
[2025-04-27 17:24] VITALS: BP 126/82; PULSE 86; RESP 12; O2SAT 100
[2025-04-27 17:31] VITALS: BP 124/81; PULSE 78; RESP 17; O2SAT 100
[2025-04-27 18:15] VITALS: BP 118/80; PULSE 78; RESP 16; TEMP 36.6; O2SAT 99
[2025-04-27] MEDS: KETOROLAC 15 MG/ML VIAL (*BKC) IV PUSH (18:23)
[2025-04-27 18:42] LABS: CRP < 0.5 mg/dL (<1.0)
== END 2025-04-27 19:24 | disposition home or self-care (01) ==
PROVIDERS: Physician Assistant; Emergency Provider Registered Nurse; PCP Family Medicine
DX: R51.9 Headache, unspecified (principal); E86.0 Dehydration; R94.31 Abnormal electrocardiogram [ECG] [EKG]
CPT/HCPCS: 36415; 70496; 70498; 80053; 84484; 85025; 85610; 85652; 85730; 86140; 93005; 96361; 96374; 96375; 99284; A9270; J0780; J1200; J1885; J7030; Q9967

== ENCOUNTER 2025-09-16 23:37 | Emergency (ER) | payer OTHER, SELFPAY ==
[2025-09-16 23:40] VITALS: BP 122/70; PULSE 114; RESP 18; TEMP 36.4; O2SAT 99
--- OUTSIDE RECORDS SUMMARY | 2025-09-16 23:40 | XMS_ITS | Clinical Summary ---
Author Organization [facility] Address [address] [place] [id number] Care Team Providers Care Veneer Joiner Name Role Phone Rogelio Yoo MD Primary [...] No improvement - 2018 24hr pH impedence Surgical History Surgery Date Site/Laterality Comments ESOPHAGOSCOPY [...] Comments Blood Pressure 126/81 09/28/2024 1:10 PM GEOGRAPHY DEPARTMENT CHAIR Pulse 68 09/28/2024 1:15 PM GEOGRAPHY DEPARTMENT CHAIR Temperature 36.7 C (98.1 F) 09/28/2024 12:28 PM GEOGRAPHY DEPARTMENT CHAIR Respiratory Rate 18 09/28/2024 1:15 PM GEOGRAPHY DEPARTMENT CHAIR Oxygen Saturation 100% 09/28/2024 1:15 PM GEOGRAPHY DEPARTMENT CHAIR Inhaled Oxygen Concentration - - Weight 78 kg (172 lb) 09/28/2024 11:36 AM GEOGRAPHY DEPARTMENT CHAIR Height 177.8 cm (5' 10) 09/28/2024 11:36 AM GEOGRAPHY DEPARTMENT CHAIR Body Mass Index 24.68 09/28/2024 11:36 AM GEOGRAPHY DEPARTMENT CHAIR Plan of Treatment Health Maintenance Due Date Last Done Comments Depression Screening 1995 Hepatitis C Screening 1995 Varicella Vaccines (2 of 2 - 2-dose childhood series) 1999 01/26/1997 DTaP/Tdap/Td Vaccine (5 - Tdap) 2006 12/23/1996, 03/14/1996, 01/07/1996, Additional history exists Regular Well Visit/Exam 18-64 2013 HPV Vaccines (1 - 3-dose SCDM series) 2022 Covid-19 Vaccine ( - 2024- season) 2025 07/05/2023, 08/09/2021, 10/23/2020, Additional history exists Influenza Vaccine (#1) 2025 , 07/05/2023, 06/25/2022, Additional history exists Hepatitis B Screening Completed 03/14/1996 , 1995, 1995, Additional history exists Pneumococcal vaccine <65 Aged Out No longer eligible based on patient's age to complete this topic Insurance [facility] Care Teams Veneer Joiner Relationship Specialty Start Date End Date Rogelio Yoo MD PCP - General Family Medicine 04/25/24
--- OUTSIDE RECORDS SUMMARY | 2025-09-16 23:40 | XMS_ITS | Clinical Summary ---
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 AND REPAIRER Gender Identity Not on file Sexual Orientation Not on file Last Filed Vital Signs Vital Sign Reading Time Taken Comments Blood Pressure 116/63 08/13/2018 9:10 AM POWER LINE INSTALLER AND REPAIRER Pulse 66 08/13/2018 9:10 AM POWER LINE INSTALLER AND REPAIRER Temperature 36.7 C (98.1 F) 08/13/2018 8:43 AM POWER LINE INSTALLER AND REPAIRER Respiratory Rate 19 08/13/2018 9:10 AM POWER LINE INSTALLER AND REPAIRER Oxygen Saturation 98% 08/13/2018 9:10 AM POWER LINE INSTALLER AND REPAIRER Inhaled Oxygen Concentration - - Weight 72.1 kg (159 lb) 08/10/2018 4:45 PM POWER LINE INSTALLER AND REPAIRER Height 177.8 cm (5' 10) 08/10/2018 4:45 PM POWER LINE INSTALLER AND REPAIRER Body Mass Index 22.81 08/10/2018 4:45 PM POWER LINE INSTALLER AND REPAIRER Plan of Treatment Health Maintenance Due Date Last Done Comments Annual Physical 1998 Hepatitis C 2013 DTaP, Tdap and Td Vaccines ( 1 - Tdap) 2014 Hepatitis B Vaccines (1 of 3 - 19+ 3-dose series) 2014 HPV Vaccines (1 - 3-dose SCD M series) 2022 COVID-19 Vaccine (3 - 2024-2 6 season) 2025 10/23/2020, 09/25/2020 Influenza Adult (#1) 2025 07/29/2019 Hepatitis A Vaccines Aged Out No long er eligible based [...] complete this topic Insurance [employer] Care Teams Telemetry Technician Relationship Specialty Start Date End Date Rogelio Yoo MD [address] [address] PCP - General FAMILY PRACTICE 08/13/18 Agnieszka Valverde DO [address] [place] [address] FAMILY PRACTICE 04/06/25
[2025-09-17 00:16] VITALS: BP 119/98; PULSE 105; RESP 18; O2SAT 96
[2025-09-17 00:17] LABS: Hematocrit 52.2 % (42.0-52.0); Hemoglobin 18.0 g/dL (14.0-18.0); Immature Granulocyte Percent A 0.3 % (0-0.5); Lymphocytes Absolute Auto 1.28 K/mm3 (0.9-3.2); Mean Corpuscular HGB Conc 34.5 g/dl (32-36); Mean Corpuscular Hemoglobin 31.1 pg (26-34); Mean Corpuscular Volume 90.2 fl (80-100); Nucleated Red Blood Cells Absolute Auto 0.000 K/mm3 (0.0-0.012); Nucleated Red Blood Cells Perc 0.0 % (0.0-0.2); Platelet Count Result 305 k/mm3 (150-375); Red Blood Count 5.79 M/mm3 (4.6-6.20); White Blood Count 6.9 K/mm3 (4.5-10.0)
--- OUTSIDE RECORDS SUMMARY | 2025-09-17 00:17 | XMS_ITS | Clinical Summary ---
Author Organization [facility] Address [address] [place] [id number] Care Team Providers Care Hydrodynamics Professor Name Role Phone Rogelio Yoo MD Primary [...] 2019 first office visit at [facility]. Significant regurgitation after meals and [...] Comments Blood Pressure 126/81 09/28/2024 1:10 PM CAD SPECIALIST Pulse 68 09/28/2024 1:15 PM CAD SPECIALIST Temperature 36.7 C (98.1 F) 09/28/2024 12:28 PM CAD SPECIALIST Respiratory Rate 18 09/28/2024 1:15 PM CAD SPECIALIST Oxygen Saturation 100% 09/28/2024 1:15 PM CAD SPECIALIST Inhaled Oxygen Concentration - - Weight 78 kg (172 lb) 09/28/2024 11:36 AM CAD SPECIALIST Height 177.8 cm (5' 10) 09/28/2024 11:36 AM CAD SPECIALIST Body Mass Index 24.68 09/28/2024 11:36 AM CAD SPECIALIST Plan of Treatment Health Maintenance Due Date [...] patient's age to complete this topic Insurance [facility] Care Teams Hydrodynamics Professor Relationship Specialty Start Date End Date Rogelio Yoo MD PCP - General Family Medicine 04/25/24
--- OUTSIDE RECORDS SUMMARY | 2025-09-17 00:17 | XMS_ITS | Clinical Summary ---
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 Gender Identity Not on file Sexual Orientation Not on file Last Filed Vital Signs Vital Sign Reading Time Taken Comments Blood Pressure 116/63 08/13/2018 9:10 AM INTERNET SALES REPRESENTATIVE Pulse 66 08/13/2018 9:10 AM INTERNET SALES REPRESENTATIVE Temperature 36.7 C (98.1 F) 08/13/2018 8:43 AM INTERNET SALES REPRESENTATIVE Respiratory Rate 19 08/13/2018 9:10 AM INTERNET SALES REPRESENTATIVE Oxygen Saturation 98% 08/13/2018 9:10 AM INTERNET SALES REPRESENTATIVE Inhaled Oxygen Concentration - - Weight 72.1 kg (159 lb) 08/10/2018 4:45 PM INTERNET SALES REPRESENTATIVE Height 177.8 cm (5' 10) 08/10/2018 4:45 PM INTERNET SALES REPRESENTATIVE Body Mass Index 22.81 08/10/2018 4:45 PM INTERNET SALES REPRESENTATIVE Plan of Treatment Health Maintenance Due Date [...] complete this topic Insurance [employer] Care Teams Commercial Internship Relationship Specialty Start Date End Date Rogelio Yoo MD [address] [address] PCP - General FAMILY PRACTICE 08/13/18 Agnieszka Valverde DO [address] [place] [address] FAMILY PRACTICE 04/06/25
[2025-09-17] MEDS: ONDANSETRON INJ 4 MG/2 ML VIAL IV PUSH (00:25)
[2025-09-17] MEDS: FAMOTIDINE 20 MG/2 ML VIAL IV PUSH (00:27)
[2025-09-17] MEDS: DICYCLOMINE HCL INJ 20 MG/2 ML VIAL IM (00:28)
--- NOTE | 2025-09-17 00:28 | ED.NAVMDI ---
HPI - Nausea/Vomiting/Diarrhea General Chief complaint: Nausea/Vomiting/Diarrhea Stated complaint: n/v/d Time Seen by Provider: 09/16/25 23:55 History of Present Illness HPI Narrative: 30-year-old male with a past medical history including headaches currently being treated with topiramate by his neurologist. Patient presents to the emergency department today with diffuse abdominal cramping, nausea, vomiting, diarrhea. States has been going on for 2 days now. Has been having constant liquid bowel movements and vomiting. Tried some Zofran home with some intermittent health but still feels nauseous. He is describing abdominal cramping sensations and then having to go the bathroom. Thinks it could be related to his topiramate which was recently increased by his neurologist. No other recent medication changes. Denies any traumatic injuries. No sick contacts. Did have a recent fever several weeks ago that went away without any interventions. No other associated symptoms such as current fever, chills, chest pain, difficulty breathing, traumatic injuries, history of abdominal surgeries. Related Data Home Medications ?Medication ?Instructions ?Recorded ?Confirmed ?Last Taken ?Type docusate sodium 100 mg capsule 100 mg PO DAILY 07/19/20 08/09/25 Unknown History multivitamin,gv-pnpv-ltljthvw 1 tablet PO DAILY 07/19/20 08/09/25 Unknown History (Complete Multivitamin tablet) galcanezumab-gnlm 120 mg/mL 120 mg subcut MONTHLY 08/09/25 08/09/25 Unknown History subcutaneous pen injector (Emgality Pen) topiramate 25 mg tablet 25 mg PO TID 08/09/25 08/09/25 Unknown History Allergies Allergy/AdvReac Type Severity Reaction Status Date / Time No Known Allergies Allergy Verified 09/16/25 23:42 Review of Systems Review of Systems: As reviewed above in HPI All systems reviewed & are unremarkable except as noted in HPI and below PMFSH Past Medical History Medical History Hoffa's fat pad disease Surgical History Surgical History History of surgery on right wrist Family History Family History Grandparent Asthma Social History Social History Smoking status: Never smoker Alcohol intake: never Lack of Transportation: No Lack of Food: Never True Current Housing: I Have Housing Concerned About Future Housing: No Difficulty Paying Gas/Electric Bills: No Difficulty Paying for Meds: No Currently Unemployed: No Education: Master's Degree or Higher Difficulty w/ Childcare or Family Care: No Occupation/Education: occupation Additional occupation/education comments: Pharmacist- [employer] Gender identity (if verbalized by the patient): Male Exam Narrative: GENERAL: [Well-appearing, well-nourished, and in no acute distress.] HEAD: [Normocephalic, atraumatic.] EYES: [PERRLA and EOMI.] ENT: Nares clear, no rhinorrhea or epistaxis. Mucous membranes dry. NECK: Supple. CHEST: [Clear to auscultation. No respiratory distress.] HEART: [Regular rate and rhythm]. No murmur heard. [Normal peripheral pulses.] ABDOMEN: [Soft, nondistended], [nontender], [No rigidity or guarding] EXTREMITIES: Normal range of motion. [No edema.] SKIN: Warm, dry, no rash. NEURO: [No focal deficits]. Alert and oriented [x3.] PSYCH: [Normal mood and affect.] Course Vital Signs Vital signs: Vital Signs Temperature 36.4 C 09/16/25 23:40 Pulse Rate 114 H 09/16/25 23:40 Respiratory Rate 18 09/16/25 23:40 Blood Pressure 122/70 09/16/25 23:40 Pulse Oximetry 99 09/16/25 23:40 Oxygen Delivery Room Air 09/16/25 23:40 Temperature 36.4 C 09/16/25 23:40 Pulse Rate 87 09/17/25 01:25 Respiratory Rate 15 09/17/25 01:25 Blood Pressure 115/87 09/17/25 01:25 Pulse Oximetry 100 09/17/25 01:25 Oxygen Delivery Room Air 09/16/25 23:40 MDM MDM Narrative Medical decision making narrative: 30-year-old male with a past medical history including headaches currently being treated with topiramate by his neurologist. Patient presents to the emergency department today with diffuse abdominal cramping, nausea, vomiting, diarrhea. States has been going on for 2 days now. Has been having constant liquid bowel movements and vomiting. Tried some Zofran home with some intermittent health but still feels nauseous. He is describing abdominal cramping sensations and then having to go the bathroom. Thinks it could be related to his topiramate which was recently increased by his neurologist. No other recent medication changes. Denies any traumatic injuries. No sick contacts. Did have a recent fever several weeks ago that went away without any interventions. No other associated symptoms such as current fever, chills, chest pain, difficulty breathing, traumatic injuries, history of abdominal surgeries. Patient is overall well-appearing and not in any distress. Minimally tachycardic. Blood pressure within normal range. No tachypnea, hypoxemia or fever. He has a soft nontender nondistended abdomen. Sounds like his symptoms could be related to gastroenteritis versus viral in nature. Could be medication side effect given his recent increased dose of topiramate. Possibility some dehydration. Low suspicion intra-abdominal abscess or viscus insults such as pancreatitis or appendicitis. Laboratory studies were obtained he was given combination medications with Zofran, Pepcid, fluids and Bentyl. Will obtain labs and re-evaluated if needing any imaging. Patient had some improvement after medications. Vital signs remained stable. He did have some diarrhea here but tolerating oral intake and is laboratory studies are all reassuring. No leukocytosis or anemia. Normal kidney function. Normal hepatic function panel. Negative viral swabs. Discussed with patient most likely etiology being viral gastroenteritis or norovirus. No indication for advanced imaging at this time given his clinical improvement and normal labs and vitals. Discussed return precautions and medications for symptom control as well as duration of most likely course. Patient given a prescription for Reglan, Bentyl and as needed Imodium if needed. Discussed return precautions which patient and family verbalized understanding and he was safe for discharge home at this time. Differential Diagnosis Differential Diagnosis: Sounds like his symptoms could be related to gastroenteritis versus viral in nature. Could be medication side effect given his recent increased dose of topiramate. Possibility some dehydration. Low suspicion intra-abdominal abscess or viscus insults such as pancreatitis or appendicitis. Lab Data MDM Lab Attestation statement: I personally reviewed the patient's lab results. 09/17/25 00:08 09/17/25 00:08 Labs: Lab Results 09/17/25 09/17/25 Range/Units 00:08 01:22 WBC 6.9 (4.5-10.0) K/mm3 RBC 5.79 (4.6-6.20) M/mm3 Hgb 18.0 D (14.0-18.0) g/dL Hct 52.2 H (42.0-52.0) % MCV 90.2 (80-100) fl MCH 31.1 (26-34) pg MCHC 34.5 (32-36) g/dl RDW 12.9 (11.5-14.5) % Plt Count 305 (150-375) k/mm3 MPV 8.3 (7.4-10.4) fl Immature Gran % (Auto) 0.3 (0-0.5) % Neut % (Auto) 68.1 (45.5-73.1) % Lymph % (Auto) 18.4 (18.3-44.2) % [place] % (Auto) 11.7 H (2.6-8.5) % Eos % (Auto) 1.4 (0-4.4) % Baso % (Auto) 0.1 L (0.2-1.2) % Lymph # (Auto) 1.28 (0.9-3.2) K/mm3 [place] # (Auto) 0.8 H (0.1-0.6) K/mm3 Eos # (Auto) 0.1 (0-0.3) K/mm3 Baso # (Auto) 0.0 (0.0-0.1) K/mm3 Abs Immat Gran (auto) 0.02 (0.00-0.031) K/mm3 Absolute Neuts (auto) 4.7 (1.3-6.7) K/mm3 Absolute Nucleated RBC 0.000 (0.0-0.012) K/mm3 Nucleated RBC % 0.0 (0.0-0.2) % Sodium 141 (137-145) mmol/L Potassium 4.0 (3.4-5.0) mmol/L Chloride 107 (98-107) mmol/L Carbon Dioxide 22 (22-30) mmol/L Anion Gap 12 (4-12) mmol/L BUN 10 (9-20) mg/dL Creatinine 1.00 (0.7-1.3) mg/dL Estim Creat Clear Calc 99 ml/min Estimated GFR > 60 (59 - ) Glucose 103 (65-110) mg/dL Calcium 9.8 (8.4-10.2) mg/dL Total Bilirubin 0.5 (0.2-1.3) mg/dL AST 36 (17-59) U/L ALT 27 (6-50) U/L Alkaline Phosphatase 90 (38-126) U/L Total Protein 9.6 H (6.3-8.2) g/dL Albumin 5.2 H (3.5-5.1) g/dL Lipase 58 (23-300) U/L Influenza A (RT-PCR) Negative (Negative) Influenza B (RT-PCR) Negative (Negative) RSV (RT-PCR) Negative (Negative) SARS-CoV-2 RNA (RT-PCR) Negative (Negative) Discharge Plan Discharge Clinical Impression: Viral gastroenteritis Patient Disposition: Home Condition: Stable Instructions: Antibiotic Form, Gastroenteritis (DC) Additional Instructions: Laboratory studies are reassuring. No signs of organ damage or any acute urgent or emergent concerns. Symptoms consistent with viral gastroenteritis most likely norovirus. Maintain good oral hydration with water and electrolyte replacement solutions. Symptom controlling medications were prescribed for you. If you have any worsening symptoms, worsening pain, developing severe dehydration, inability to tolerate oral intake, generalized weakness or any other issues please return to the ER otherwise follow-up with regular primary care provider. Take the Imodium prescription only as needed. We have given you a prescription for Reglan and dicyclomine which can help with nauseousness and abdominal cramping. Patient Language: [place] Citizen Prescriptions: New metoclopramide HCl [Reglan] 5 mg tablet 5 mg PO Q8H PRN (Reason: nausea and vomiting) Qty: 10 0RF dicyclomine 20 mg tablet 20 mg PO TID PRN (Reason: abdominal pain) Qty: 20 0RF loperamide [Anti-Diarrheal (loperamide)] 2 mg capsule 2 mg PO Q6H PRN (Reason: loose stool) Qty: 14 0RF No Action docusate sodium 100 mg capsule 100 mg PO DAILY Complete Multivitamin Tablet 1 tablet PO DAILY topiramate 25 mg tablet 25 mg PO TID Emgality Pen 120 mg/mL pen injector 120 mg subcut MONTHLY budesonide-formoterol [Symbicort] 80-4.5 mcg/actuation HFA aerosol inhaler 1 inh inhalation Q4-6H PRN (Reason: shortness of breath) Qty: 10.2 1RF Rx Instructions: 1-2 inhalations as needed every 4 hours. ondansetron 4 mg tablet,disintegrating 4 mg PO Q8H PRN (Reason: nausea and vomiting) Qty: 20 0RF loratadine 10 mg tablet See Rx Instructions .ROUTE .COMPLEX Qty: 30 5RF Dose Instruction: TAKE 1 TABLET BY MOUTH EVERY DAY Rx Instructions: TAKE 1 TABLET BY MOUTH EVERY DAY naproxen 500 mg tablet 500 mg PO BID Qty: 60 2RF omeprazole 40 mg capsule,delayed release(DR/EC) 40 mg PO DAILY Qty: 90 1RF Follow-up/Referrals: Agnieszka Valverde DO [Primary Care Provider, [facility]] Time of Disposition: 02:28
[2025-09-17 00:30] LABS: Alanine Aminotransferase 27 U/L (6-50); Albumin Level 5.2 g/dL (3.5-5.1); Alkaline Phosphatase 90 U/L (38-126); Anion Gap 12 mmol/L (4-12); Aspartate Amino Transferase 36 U/L (17-59); Bilirubin,Total 0.5 mg/dL (0.2-1.3); Blood Urea Nitrogen 10 mg/dL (9-20); Calcium 9.8 mg/dL (8.4-10.2); Carbon Dioxide 22 mmol/L (22-30); Chloride 107 mmol/L (98-107); Estimated CRCL calculation 99 ml/min; Estimated Glomerular Filt Rate > 60; Glucose 103 mg/dL (65-110); Lipase 58 U/L (23-300); Potassium 4.0 mmol/L (3.4-5.0); Sodium 141 mmol/L (137-145); Total Protein 9.6 g/dL (6.3-8.2)
[2025-09-17] MEDS: LACTATED RINGERS 1,000 ML 999 ML IV CONT (00:30)
[2025-09-17 01:25] VITALS: BP 115/87; PULSE 87; RESP 15; O2SAT 100
--- NOTE | 2025-09-17 02:00 | PC.NURSE ---
pt unable to urinate. ed dr jackson
[2025-09-17 02:10] LABS: Influenza A QL RT-PCR Negative (Negative); Influenza B QL RT-PCR Negative (Negative); RSV RNA, RT-PCR Negative (Negative); SARS-CoV-2 RNA PCR Negative (Negative)
== END 2025-09-17 02:42 | disposition home or self-care (01) ==
PROVIDERS: Emergency Provider Student in an Organized Health Care Education/Training Program; PCP Family Medicine
DX: A08.4 Viral intestinal infection, unspecified (principal); Z20.822 Contact with and (suspected) exposure to COVID-19
CPT/HCPCS: 36415; 80053; 83690; 85025; 87637; 96361; 96372; 96374; 96375; 99284; A4565; J0500; J2405; J7120